=== PATIENT | female | born 1965 | race Caucasian/White ===

== ENCOUNTER 2022-01-08 11:21 | Outpatient (CLI) | payer BC, SELFPAY ==
--- NOTE | 2022-01-08 08:30 | DI.RAD_ITS ---
Exam(s) XR HIP LT COMPLETE AP PELVIS EXAM: XR HIP LT COMPLETE AP PELVIS CLINICAL HISTORY: L hip pain. TECHNIQUE: 2D digital imaging was performed. COMPARISON: No exams were available for comparison FINDINGS: 3 views There is no evidence of pelvic nor hip fracture. However, there is advanced dacp-me-tyce narrowing o f the left hip joint space superiorly and degenerative subarticular cysts on both sides of this joint both in the acetabulum and in the left femoral head. There may be an element of ipsilateral develop mental hip dysplasia, given the appearance of the acetabulum. IMPRESSION: Advanced osteoarthritic degenerative changes in the left hip as described above. DATA REPOSITORY: RADIATION DOSE DELIVERED:
--- NOTE | 2022-01-08 08:45 | DI.RAD_ITS ---
Exam(s) XR KNEE RT 4V AP,LAT,VIET,PAT EXAM: XR KNEE RT 4V AP,LAT,VIET,PAT CLINICAL HISTORY: R knee pain/OA. TECHNIQUE: 2D digital imaging was performed. COMPARISON: No exams were available for comparison FINDINGS: Four views: There is no evidence of fracture nor prominent joint effusion. There is gyak-xh-rpry narrowing of the lateral compartment as seen on the AP view. Lesser amount of degenerative change noted in the medial compartment. Moderate degenerative changes patellofemoral co mpartment. No osseous lesions IMPRESSION: Degenerative changes, most prominent in the lateral compartment, with unfu-ua-lmap narrowing and mindy inal osteophytes off the lateral compartment evident. DATA REPOSITORY: RADIATION DOSE DELIVERED:
== END 2022-01-08 11:22 | disposition home or self-care (01) ==
LOC: DIORS 11:21
PROVIDERS: Visit Provider Physician Assistant
DX: M16.12 Unilateral primary osteoarthritis, left hip (principal); M17.0 Bilateral primary osteoarthritis of knee
CPT/HCPCS: 73502; 73564

== ENCOUNTER 2022-02-08 02:29 | Outpatient (CLI) | payer BC, SELFPAY ==
[2022-02-08 12:44] LABS: HCT 41.5 % (36.0-46.0); HGB 13.8 g/dL (11.2-15.7); MCHC 33.3 % (32.0-36.0); MCV 84 fL (80-95); MPV 10.5 fL (8.0-11.0); Platelet Count 264 10^3/uL (130-400); RBC 4.92 10^6/uL (3.93-5.22); RDW 13.9 % (11.7-14.6); RDW-SD 42.5 fL
[2022-02-08 13:09] LABS: Anion Gap 8.3 mmol/L (3-11); BUN 22 mg/dL (7-18); CO2 24.7 mmol/L (21.0-32.0); Calcium 9.7 mg/dL (8.5-10.1); Chloride 106 mmol/L (98-107); Estimated GFR 66.12 (mL/min/1.73m2); Glucose 88 mg/dL (74-106); Potassium 4.5 mmol/L (3.5-5.1); Sodium 139 mmol/L (136-145)
== END 2022-02-08 02:30 | disposition home or self-care (01) ==
LOC: LBO 02:31
PROVIDERS: Visit Provider Student in an Organized Health Care Education/Training Program
DX: M16.12 Unilateral primary osteoarthritis, left hip (principal); Z01.818 Encounter for other preprocedural examination
CPT/HCPCS: 36415; 80048; 85027

== ENCOUNTER 2022-02-17 05:51 | Day surgery (SDC) | payer BC, SELFPAY ==
[2022-02-17] VITALS (9 sets, daily range): BP systolic 98–126; BP diastolic 59–81; PULSE 74–91; RESP 14–23; TEMP 36–36.6; O2SAT 90–97
[2022-02-17] MEDS: Acetaminophen 500 MG TAB 1000 MG PO (06:28)
[2022-02-17] MEDS: Celecoxib 200 MG CAP 400 MG PO (06:28)
--- NOTE | 2022-02-17 06:45 | DI.RAD_ITS ---
Exam(s) XR HIP LT IN OR EXAM: XR HIP LT IN OR CLINICAL HISTORY: primary oa of left hip. TECHNIQUE: 2D and realtime digital imaging was performed. COMPARISON: CR XR HIP LT COMPLETE AP PELVIS from 01/08/2022 FINDINGS: Fluoroscopy was provided in the OR for Dr. Osuna. Hard copy images show placement of a left hip p rosthesis. The alignment appears satisfactory. Please see procedure note for details. Fluoro time: 37.8seconds RADIATION DOSE DELIVERED: gaby Enciso=5.12 mGy
--- NOTE | 2022-02-17 06:52 | W.ANESPRE ---
General Info Date of Service Date Performed: 02/17/22 Height: 6 ft Weight: 100.6 kg Body Mass Index (BMI): 30.0 Surgical Procedure: Operation Date: 02/17/22 07:50 Proposed Procedure Side Surgeon p Hip Total Hip Anterior Corail Short Neck Left Rah Osuna MD Meds Allergies and Home Medications Allergies Allergy/AdvReac Type Severity Reaction Status Date / Time strawberry Allergy Severe Anaphylaxis Verified 02/17/22 06:07 tomato Allergy Severe Anaphylaxis Verified 02/17/22 06:07 guava Allergy Severe Anaphylaxis Uncoded 02/17/22 06:07 Home Medication Medication Instructions Recorded ascorbate calcium (vitamin C) 500 500 mg PO DAILY 02/08/22 mg tablet cholecalciferol (vitamin D3) 10 10 mcg PO DAILY 02/08/22 mcg (400 unit) capsule coenzyme Q10 10 mg capsule (Co 10 mg PO ONCE 02/08/22 Q-10) ibuprofen 200 mg tablet 600 mg PO Q6H PRN 02/08/22 omega 6-nfx-vzn-fish oil 60 mg-90 1 cap PO DAILY 02/08/22 mg-500 mg capsule (Fish Oil) Current Visit Medications: Current Medications Generic Name Dose Route Start Last Admin Trade Name Freq PRN Reason Stop Dose Admin Acetaminophen 1,000 mg 02/17/22 06:00 02/17/22 06:28 Acetaminophen 500 Mg Tab PO 1,000 mg PREOP MARLENY Administration Celecoxib 400 mg 02/17/22 06:00 02/17/22 06:28 Celecoxib 200 Mg Cap PO 400 mg PREOP MARLENY Administration Tranexamic Acid 1,000 mg/ 60 mls @ 360 mls/hr 02/17/22 06:00 Sodium Chloride IV 02/17/22 18:00 PREOP MARLENY Ringer's Solution 1,000 mls @ 80 mls/hr 02/17/22 06:00 IV 02/17/22 23:59 INFUSION MARLENY Cefazolin Sodium/Dextrose 2 gm in 50 mls @ 100 mls/hr 02/17/22 06:00 Ancef Duplex IVPB 02/17/22 23:59 PREOP MARLENY IV Miscellaneous Supplies 1 each 02/17/22 06:00 Iv Access IV 02/17/22 23:59 DIRECTED MARLENY Sodium Chloride 0 ml 02/17/22 06:00 Normal Saline Flush 10 Ml Syr IV 02/17/22 23:59 PRN PRN Sodium Chloride 0 ml 02/17/22 06:00 Normal Saline 10 Ml Vial IJ 02/17/22 23:59 DIRECTED PRN Sterile Water 0 ml 02/17/22 06:00 Water,Injection,Sterile 10 Ml Vial IJ 02/17/22 23:59 DIRECTED PRN PFSH Active Problems Active Problems: Problem Status Onset Code Asthma J45.909 Anemia D64.9 Bilateral primary osteoarthritis of knee M17.0 Primary osteoarthritis of left hip M16.12 Medical History Medical History (Updated 02/17/22 @ 06:12 by Salina Dupont) History of asthma History of kidney stones Medical History Comments:: pt. remembers aunt coming in with heavy perfume on after her surgery and then vomitting after both surgeries Surgical History Surgical History History of appendectomy History of tonsillectomy Tobacco Smoking/Tobacco Use Status: Never Alcohol Alcohol Intake: current Alcohol intake frequency: a few times a week Alcohol type: hard liquor Substance Use Substance use: Never Details: alcohol: t-1, one drink Vital Signs and Lab Results Vital Signs Most Recent Vital Signs in EMR: Most Recent Vital Signs Temp Pulse Resp BP Pulse Ox 36.6 C 87 14 126/81 97 02/17/22 06:16 02/17/22 06:16 02/17/22 06:16 02/17/22 06:16 02/17/22 06:16 Lab Results Blood Type / Crossmatch: No Data to Display Complete Blood Count: White Blood Count 10.10 10^3/uL (4.4-10.8) 02/08/22 12:34 Red Blood Count 4.92 10^6/uL (3.93-5.22) 02/08/22 12:34 Hemoglobin 13.8 g/dL (11.2-15.7) 02/08/22 12:34 Hematocrit 41.5 % (36.0-46.0) 02/08/22 12:34 Platelet Count 264 10^3/uL (130-400) 02/08/22 12:34 Complete Metabolic Panel: Sodium 139 mmol/L (136-145) 02/08/22 12:34 Potassium 4.5 mmol/L (3.5-5.1) 02/08/22 12:34 Chloride 106 mmol/L (98-107) 02/08/22 12:34 Carbon Dioxide 24.7 mmol/L (21.0-32.0) 02/08/22 12:34 BUN 22 mg/dL (7-18) H 02/08/22 12:34 Creatinine 1.0 mg/dL (0.55-1.02) 02/08/22 12:34 Est GFR (CKD-EPI 2020) 66.12 (mL/min/1.73m2) 02/08/22 12:34 Calcium 9.7 mg/dL (8.5-10.1) 02/08/22 12:34 Glucose 88 mg/dL (74-106) 02/08/22 12:34 Liver Function Panel: No Data to Display Coagulation Panel: No Data to Display Cardiac Panel: No Data to Display Arterial Blood Gas: No Data to Display Venous Blood Gas: No Data to Display Pancreas Panel: No Data to Display Thyroid Panel: No Data to Display Infectious Disease: No Data to Display Blood Cultures: No Data to Display Toxicology Panel: No Data to Display Anesthesia Assessment and Plan Anesthesia History Personal History: No History of Anesthesia Complications and PONV Family History: No Family History of Anesthesia Complications Exercise Tolerance Exercise Tolerance: Metabolic Equivalents>4 Pertinent Negatives Pertinent Negatives: No Symptoms of GERD Cardiac & Pulmonary Exam Cardiac Exam: Normal S1/S2 Heart Sounds Pulmonary Exam: Clear Bilateral Breath Sounds Implantable Cardiac Device Does patient have a Pacemaker or an ICD?: No Airway Exam Known Difficult Airway: No Mallampati Class: 1 Mouth Opening: Normal (> 3cm) Thyromental Distance: Greater than 3 cm Neck Range of Motion: Full ROM Neck Circumference: Normal Teeth Condition: Normal Dentition ASA Classification ASA Score: ASA 2 Emergency Case?: No NPO Status NPO Status: NPO Clears >2 hours, Solids >8 hours Anesthesia Plan Resuscitation Status: Full Code Anesthesia Technique: Spinal Anesthesia Airway Planned: Natural Airway Monitors Used: Standard Monitors
[2022-02-17] MEDS: Lactated Ringers 1,000 ML 80 ML IV (06:55)
--- NOTE | 2022-02-17 07:22 | PDOC.DSDIS_ITS ---
Date of service: 02/17/22 Time of Service: 07:22 Discharge Plan Disposition Patient Disposition: HOME Condition: Good Condition: Good Discharge Details Attending Provider: Rah Osuna Primary Care Provider: Unknown,Unknown Home Meds and New Rx's Prescriptions: New acetaminophen 500 mg tablet 1,000 mg PO Q8H PRN (Reason: pain) Qty: 90 3RF aspirin 81 mg tablet,delayed release (DR/EC) 81 mg PO BID Qty: 60 0RF dexamethasone 4 mg tablet 4 mg PO DAILY Qty: 2 0RF Rx Instructions: Starting Post-Operative Day #1 (Day after surgery) oxycodone 5 mg tablet 5 mg PO Q4H Qty: 18 0RF pantoprazole 40 mg tablet,delayed release (DR/EC) 40 mg PO DAILY Qty: 30 0RF celecoxib 200 mg capsule 200 mg PO BID PRN (Reason: pain) Qty: 60 1RF Continued cholecalciferol (vitamin D3) 10 mcg (400 unit) capsule 10 mcg PO DAILY coenzyme Q10 [Co Q-10] 10 mg capsule 10 mg PO ONCE omega 8-vhi-dty-fish oil [Fish Oil] 60-90-500 mg capsule 1 cap PO DAILY ascorbate calcium (vitamin C) 500 mg tablet 500 mg PO DAILY Discontinued ibuprofen 200 mg tablet 600 mg PO Q6H PRN Discharge Instructions Additional Instructions: Total Hip Discharge Instructions Activity: The most important activity is to walk. You should try to take short walks a few times a day. You have no restrictions on movement or positioning, but do not try to force what you do. You will find some stiffness and weakness with hip flexion (lifting your knee). Do not try to strengthen this too early, continue to practice walking and stairs and this will come. - Outpatient physical therapy can be helpful to help return you to a normal gait and improve your flexibility and strength. This can start around 2 weeks. For some patients, it?s not necessary. Usually this is determined at the time of discharge or at the first post-operative visit. - You should wear the SAMM hose on both legs for 2 weeks. Dressing: Keep the surgical dressing in place for at least one week. After the first week it may be removed and replace with light gauze and tape or nothing. It may get wet after 3 days but avoid soaking the dressing. If it gets wet, just lightly pat dry. It is important to always keep some gauze between skin folds, especially when you are sitting. Spend some time with the wound exposed when you are lying flat as the incision does wrinkle onto itself. Medications: - You should take Tylenol and an anti-inflammatory Celebrex as your primary pain control medications. If the Celebrex is too expensive or not covered, please call the office for another alternative (Advil/Ibuprofen or Naproxen/Aleve). - You have been prescribed a stronger pain medication Oxycodone for breakthrough pain, take as needed as prescribed. - You have also been prescribed a stomach acid reduction agent Pantoprozole to help reduce stomach acid and reflux. - You have also been prescribed Decadron to help with post-operative nausea and pain. You will take this for two days starting tomorrow. - You will be taking Aspirin 81mg twice a day for DVT prevention unless instructed otherwise. - If you have constipation you should take Colace or Miralax (both [id number]). It takes most people 3-4 days to have a bowel movement. Follow-up: 2 weeks If you have any acute concerns or questions, please do not hesitate to contact the office at [phone]. You may contact Dr. Osuna with any questions after hours through the hospital at [phone] or on his cell phone at [phone]. Stand Alone Forms: Anesthesia Discharge Inst., Oanh Butterfield (U) Referrals: Rah Osuna MD [ [facility] STAFF PHYSICIAN] - Equipment/Supplies: Walker Activity:: Activity as Tolerated Remove Dressings/Wound Care:: Do Not Remove Shower/Bathe:: 72 hours and Cover Diet:: As Tolerated Discharge Orders Discharge Orders: Discharge Order (Routine); Ordered 02/17/22 Ordered By: Rah Osuna DS: Diagnosis Discharge Diagnosis (1) Primary osteoarthritis of left hip: Status: Acute
[2022-02-17] MEDS: ceFAZolin 2 GM/50 ML BAG IVPB (07:45)
--- NOTE | 2022-02-17 10:02 | W.PM.OP ---
Date of service: 02/17/22 Time of Service: 09:15 Operative Note Operative Note DATE OF PROCEDURE: 02/17/22 PRE-OP DIAGNOSIS: Left Hip Osteoarthritis POST-OP DIAGNOSIS: same PROCEDURE: Left Anterior Total Hip Arthroplasty with Intraoperative Navigation SURGEON: Rah Osuna INDEPENDENT INSURANCE ADJUSTER: Dewayne Bass ANESTHESIA TYPE: Spinal Refer to Anesthesia Record ESTIMATED BLOOD LOSS: 200 PATHOLOGY: none sent TOURNIQUET TIME: 0 COMPLICATIONS: None Patient was transported to: PACU Patient's condition: stable Implants: 1. Depuy Kendrick Acetabular Component, 52mm 2. Depuy Acetabular Liner, [id number] 3. Depuy Corail Short Neck Collared Femoral Stem, Size 13 4. Depuy Altrx Ceramic Femoral Head, Size 36+1.5mm Indications: I have seen Nedra in clinic for symptoms of hip arthritis, confirmed with radiographic findings. She has exhausted nonoperative methods and was having significant limitations in daily function and desired better function and less pain. I discussed the technical details of a hip replacement. I explained the risks of the procedure to include, but not limited to, bleeding, infection, pain, stiffness, fracture, damage to nerves and vessels, damage to muscles and tendons, loosening, instability, leg length inequality, need for repeat procedure, blood clot and cardiopulmonary demise. Despite these risks, Nedra elected to proceed. Findings: There was significant signs of arthritis throughout the hip with notable deformity of the femoral head. Procedure Description: Nedra was greeted in the preoperative holding area where the correct side was identified and marked. The consent was reviewed with the patient and signed. The history and physical was updated. All questions were answered. She was taken back to the operating room. A spinal anesthestic was then administered. The feet were wrapped with cast padding and Coban and then placed into the boot liners and then into the boots. Care was taken to protect the skin and make sure the heels were fully down and the boots were stable. The patient was then positioned onto the HANA table. Both legs were held in a neutral position. SCDs were applied. The patient was then slid down onto a peroneal post. Prophylactic antibiotics in the form of Cefazolin were administered. 1g of Tranxemic Acid was given intravenously within 30 minutes of incision. The left leg was then prepped with Chloraprep and draped in a standard fashion. A second prep with Chloraprep was performed prior to placement of a shower-curtain type drape with Iodine impregnated skin protection. A timeout to confirm correct identity, side and site, procedure, allergies, anesthesia, and medical concerns was performed. An obliquely oriented incision was made starting lateral to the ASIS and running distal over the Tensor Fascia Cici (TFL) muscle belly toward the fibular head, approximately 10cm. The skin and soft tissue was dissected sharply, through Rob?s fascia, and to the fascia of the TFL. With the fascia and superior border of the IT band identified, the fascia was incised with a new knife just above any perforators from the IT band. The TFL muscle belly was bluntly dissected away from the fascia and moved laterally. The fat between TFL and rectus was identified to ensure the dissection was not within the TFL. Blunt dissection created space between abductors and the capsule and retractor was placed over the lateral femoral neck. The fibers of the rectus femoris tendon were identified and these were freed from the anterior capsule. A second cobra retractor was placed around the medial femoral neck. The TFL was further retracted laterally to show the deep fascia. Careful dissection through this layer identified three main crossing vessels of the lateral femoral circumflex. These were cauterized in multiple locations and then cut without any noticeable bleeding. The TFL was further released bluntly from the deep fascia to expose anterior hip capsule and fat The Miah orthopaedic retractor was then placed beneath the TFL and against sartorius and medial soft tissues to protect and retract the soft tissues. A T-capsulotomy was then performed starting at the superior lateral acetabulum and moving distally to the intertrochanteric ridge. These capsular flaps were tagged with a No. 1 Ethibond and elevated from within. The capsular flaps were released to the shoulder of the lateral neck and to the lesser trochanter to give excellent visualization of the proximal femur. A neck osteotomy was performed using an oscillating saw based on preoperative templates. This cut started in the shoulder and of the lateral neck and exited medially. The saw was at all times directed medially to avoid injury to the greater trochanter. Gross traction was applied to the leg and the osteotomy opened. The femoral head was removed with a corkscrew, making sure to protect the TFL on its exit. Traction was released after head removal. This was measured on the back table to determine the starting reamer size. Portions of the rectus obscuring visualization were minimally elevated off the superior acetabulum. An anterior retractor was placed over the anterior wall between capsule and labrum and attached to the Gripper retraction system. The femur was rotated to 90 degrees and medial capsule was fully released until the lesser trochanter was palpable and visible; the femur was returned to 30 degrees. A posterior retractor was placed similarly between capsule and labrum. This provided excellent visualization. The contents of the cotyloid fossa were removed with electrocautery and the labrum was removed with a knife. There was significant chondromalacia of the superior acetabulum. Acetabular reaming began with a 46mm reamer. This first reaming was directed anterior to posterior and medial to get down to the true floor. This was inspected and reamed until the true floor was reached. The anterior retractor was then released and entry and exit was provided by traction on the capsular flaps. I then reamed sequentially up to a 52mm reamer where good fit was obtained. The larger reamers were oriented based on anatomical reference of the anterior and lateral garcia to ensure proper abduction and anteversion. Positioning and size was confirmed with the fluoroscopy. A 52mm Depuy Kendrick acetabular component was selected. The acetabulum was reamed around the periphery with the selected acetabular size to prevent a rim fit. The deep tissues were irrigated. The acetabular component was then impacted in a position of about 40-45 degrees of abduction and 15-20 degrees of anteversion, using the patient?s anatomy as the ultimate landmark. Fluoroscopy was used to confirm this. There was excellent committee member of the acetabular component and the inserting handle was removed. The acetabular liner, Depuy [id number] polyethylene liner, was inserted and lined up with the tines of the acetabular component. There was no soft tissue interposition. The liner was then impacted into position and confirmed to be well-seated. A portion of the jane-articular cocktail was then injected around the acetabulum into the capsule and periosteum. This cocktail consisted of 123mg of Ropivacaine, 0.25mg of Epinephrine, and 15mg of Ketorolac, diluted to 50cc. The leg was rotated to 120 degrees. Any remaining medial capsule was released until the lesser trochanter was easily palpable. A retractor was placed medially. The lateral capsule was further released into the shoulder to allow access to the greater trochanter. A Cepsedes retractor was placed over the greater trochanter which allowed the trochanter to flip in front of the capsule for excellent exposure. The leg was brought down into maximal extension and 20 degrees of adduction while ensuring there was no impingement on the acetabulum. Any remnant capsule within the trochanter was released. Piriformis and obturator externis were identified and protected. There was excellent access to the proximal femur. The lateral neck remnant was removed with a rongeur. A blunt canal probe was used to identify the canal and trajectory for later broaching. A box osteotome initiated the broach course. A small curved rasp and a curved curette were used to work laterally. Broaching then began with a size 8 Corail broach. This was inserted manually around the trochanter and into the canal before mallet blows. The broach was seated to the neck cut level based on the neck cut and the preoperative template. Sequential broaching was continued with the [employer] pneumatic broaching device until a tight fit was obtained with good rotational control of the femur. A trial short neck was inserted along with a +1.5 trial head. The leg was brought out of extension and adduction and then reduced with traction and internal rotation. The leg was stable anteriorly in a position of 30 degrees of extension and 90 degrees of external rotation. Fluoroscopy was used to ensure there was no fracture and the stem was seated well. Leg lengths were checked with an AP pelvis and pelvic reference points. Mozido navigation system was used to confirm appropriate positioning and leg length and offset. Once content with the desired offset and leg lengths, the leg was brought back into extension, external rotation and adduction. The periosteum and surrounding tissue was injected with remaining portion of the jane-articular cocktail. The proximal femur was irrigated as well as the deep tissues. The Depuy Corail short neck collared stem, size 13, was then manually inserted into the proximal femur making sure to control rotation. It was then malleted into position with light blows, giving breaks to allow bone expansion and decrease risk of fracture. The selected Depuy Altrx Ceramic Head, size 36+1.5mm, was then placed onto the clean and dry trunnion and secured with impaction onto the tapered fit. The leg was brought back out of extension and adduction and reduced with traction and internal rotation. Stability was confirmed with no shuck at 90 degrees of external rotation and 30 degrees of extension. No impingement through range of motion arc. Final x-ray images were obtained with fluoroscopy to confirm adequate positioning and no intraoperative fracture. The deep tissues were thoroughly irrigated with Surgiphor, betadine solution. This was allowed to sit in the wound for 3 minutes before being thoroughly irrigated out with normal saline. The capsule was then reapproximated with the previously placed Ethibond sutures. The TFL fascia was finally closed with a No. 2 Stratafix, barbed suture. Deep tissues were then reapproximated with 0 Vicryl and a running 2-0 Vicryl. The skin was closed with a running 4-0 Monocryl in a subcuticular fashion. This was reinforced with skin glue. A Mepilex silver dressing was applied. At the end of the case, all counts were correct. Nedra was transferred to the hospital bed without difficulty and suffering no apparent complication. Nedra has a good prognosis. Physical therapy will start today and without restrictions, weight-bearing as tolerated. Aspirin 81mg BID will be used for DVT prophylaxis.
[2022-02-17] MEDS: oxyCODONE 5 MG TAB PO (10:48)
--- NOTE | 2022-02-17 10:49 | W.ANESPOSTOP ---
Postoperative Evaluation Date, Time and Location Date Performed: 02/17/22 Time Performed: 10:15 Patient Location: Day Surgery Unit Vital Signs Most Recent Imported Vital Signs: Most Recent Vital Signs Temp Pulse Resp BP Pulse Ox 36.0 C L 75 16 107/78 94 02/17/22 10:08 02/17/22 10:08 02/17/22 10:08 02/17/22 10:08 02/17/22 10:08 Pain Score Most Recent Pain Score: Most Recent Pain Score Pain Level [Left Hip] 6 02/17/22 10:32 Pain Level 0 02/17/22 09:59 Assessment Mental Status: Awake (Alert & Oriented to Patient Baseline) Airway and Respiratory Function: Patent airway with normal (patient baseline) respiratory exam Cardiovascular Function: Hemodynamically Stable Hydration Status: Adequately Hydrated Nausea & Vomiting: No Nausea or Vomiting Pain: Pain is tolerable per patient Peripheral Nerve Block: Patient did not receive a nerve block
== END 2022-02-17 12:35 | disposition home or self-care (01) ==
PROVIDERS: Visit Provider Student in an Organized Health Care Education/Training Program
PROC: (CPT 27130; principal; 2022-02-17 07:30)
DX: M16.12 Unilateral primary osteoarthritis, left hip (principal); J45.909 Unspecified asthma, uncomplicated; D64.9 Anemia, unspecified
CPT/HCPCS: 27130; 20985; 97162; 97530; 73501; J0690; J1100; J2250; J2405

== ENCOUNTER 2022-03-04 11:13 | Outpatient (CLI) | payer BC, SELFPAY ==
--- NOTE | 2022-03-04 10:15 | DI.RAD_ITS ---
Exam(s) XR HIP LT COMPLETE AP PELVIS EXAM: XR HIP LT COMPLETE AP PELVIS CLINICAL HISTORY: 1ST POST OP L MICHELE TECHNIQUE: COMPARISON: CR XR HIP LT COMPLETE AP PELVIS from 01/08/2022 FINDINGS: Two views were obtained and show total hip joint replacement in position. The components appear well seated. No other significant bony abnormality seen on the left. Mild degenerative changes of the r ight hip noted. IMPRESSION: RADIATION DOSE DELIVERED: Total DLP
== END 2022-03-04 11:14 | disposition home or self-care (01) ==
LOC: DIORS 11:16
PROVIDERS: Visit Provider Student in an Organized Health Care Education/Training Program
DX: Z96.642 Presence of left artificial hip joint (principal)
CPT/HCPCS: 73502

== ENCOUNTER 2022-03-10 13:18 | Outpatient (CLI) | payer BC, SELFPAY ==
--- NOTE | 2022-03-10 12:12 | DI.RAD_ITS ---
Exam(s) XR STANDING ALIGNMENT EXAM: XR STANDING ALIGNMENT CLINICAL HISTORY: pre op TECHNIQUE: COMPARISON: No exams were available for comparison FINDINGS: AP standing alignment views of the lower extremities were obtained. There is a total hip joint prost hesis in position left. There are mild degenerative changes of the right hip. There is varus angula tion at both knees. There are moderate to severe degenerative changes involving the knees, predomina ntly at the lateral tibiofemoral joints. IMPRESSION: RADIATION DOSE DELIVERED: Total DLP
== END 2022-03-10 13:19 | disposition home or self-care (01) ==
LOC: DIORS 13:19
PROVIDERS: Visit Provider Student in an Organized Health Care Education/Training Program
DX: M17.0 Bilateral primary osteoarthritis of knee (principal); Z96.642 Presence of left artificial hip joint; M16.11 Unilateral primary osteoarthritis, right hip; M21.161 Varus deformity, not elsewhere classified, right knee; M21.162 Varus deformity, not elsewhere classified, left knee
CPT/HCPCS: 77073

== ENCOUNTER 2022-03-22 02:53 | Outpatient (CLI) | payer BC, SELFPAY ==
[2022-03-22 10:56] LABS: Abs Immature Grans 0.07 10^3/uL (0.0-0.06); Absolute Basophil Count 0.09 10^3/uL (0.0-0.2); Absolute Eosinophil Count 0.19 10^3/uL (0.0-0.7); Absolute Lymphocyte Count 2.06 10^3/uL (1.2-3.4); Absolute Monocyte Count 0.43 10^3/uL (0.1-0.8); Basophils % 0.9; Eosinophils % 1.9; HCT 43.3 % (36.0-46.0); HGB 14.3 g/dL (11.2-15.7); Immature Grans % 0.7; Lymphocytes % 20.3; MCH 28.1 pg (27.0-33.0); MCV 85 fL (80-95); MPV 10.5 fL (8.0-11.0); Monocytes % 4.2; Platelet Count 276 10^3/uL (130-400); RBC 5.09 10^6/uL (3.93-5.22); RDW-SD 43.7 fL; WBC 10.14 10^3/uL (4.4-10.8)
[2022-03-22 11:22] LABS: Anion Gap 10.8 mmol/L (3-11); BUN 20 mg/dL (7-18); CO2 26.2 mmol/L (21.0-32.0); Calcium 9.7 mg/dL (8.5-10.1); Chloride 103 mmol/L (98-107); Estimated GFR 66.12 (mL/min/1.73m2); Glucose 111 mg/dL (74-106); Potassium 4.1 mmol/L (3.5-5.1); Sodium 140 mmol/L (136-145)
== END 2022-03-22 02:54 | disposition home or self-care (01) ==
LOC: LBO 02:55
PROVIDERS: Visit Provider Student in an Organized Health Care Education/Training Program
DX: M17.0 Bilateral primary osteoarthritis of knee (principal); M25.561 Pain in right knee; M25.562 Pain in left knee; Z01.818 Encounter for other preprocedural examination; Z01.812 Encounter for preprocedural laboratory examination
CPT/HCPCS: 36415; 80048; 85025

== ENCOUNTER 2022-03-30 07:02 | Day surgery (SDC) | payer BC, MEDICARE, SELFPAY ==
--- NOTE | 2022-02-17 11:49 | PT.INIE ---
Date of service: 02/17/22 Time of Service: 11:02 PT Notes Physical Therapy Day Surgery Initial Evaluation Date: 02/17/2022 Referring Doctor: Rah Osuna MD PT Orders: PT CONSULT: S/P Ortho Surgery Precautions: WBAT on L LE with AD. Patient Profile/Admitting Diagnosis: Nedra is a 56-year-old female patient with degenerative joint disease of the L hip and is S/P L anterior total hip arthroplasty on postoperative day 1. PMHX: Medical History?(Updated 02/09/22 @ 08:24 by GREGG Chowdary) History of kidney stones Surgical History?(Updated 11/11/21 @ 15:54 by Jairo Hermosillo RN) History of appendectomy History of tonsillectomy Social History/Home Situation: Lives with in a private home they recently moved in [place], [place] with trhreee steps to enter with rails on B sides. Independent with 4WW prior to surgery. Has been using a hinged brace on the left due to an old L knee injuryshe had incollege playing basketball. Equipment Owned/DME: [employer] Subjective: Excited about how less she is hurting with movement. More satisfied with her posture right norw than before surgery. Feels more seucure with the front-wheeled walker for now. 6/10 at rest and went down to 2/10 with ambulation activity Objective: General Observation: Supine on stretcher. Mepilex Ag over surgical incision. TEDS to B legs. In NAD. Mental Status: Alert and oriented x 4 Pain: Initially at 6/10 in the R knee and the L hip; went down to 2/10 in same areas with weight bearing/movement ROM: Right Lower Extremity: Hip flexion WFL. Hip abduction WFL. Knee flexion contracture of about 30 degrees but able to bend to about 90 degrees. knee extension -30 degrees. Ankle dorsiflexion WFL. Ankle plantarflexion WFL. Left Lower Extremity: Hip flexion lacks the last 25% of active flexion due to pain adn weakness. Hip abduction about 10 degrees, neeeded help of L hand to slide further onto edge of bed. Knee flexion 20 degrees to 90 degrees. Kneee extension -20 degrees. Ankle dorsiflexion WFL. Ankle plantarflexion WFL. Strength: Right Lower Extremity: Hip flexors 4-/5. Hip abductors 4-/5. Knee flexors 3-/5. Knee extensors 3-/5. Ankle dorsiflexors 4-/5. Ankle plantarflexors 4-/5. Left Lower Extremity: Hip flexors 3-/5. Hip abductors 3-/5. Knee flexors 3-/5. Knee extensors 3-/5. Ankle dorsiflexors 4-/5. Ankle plantarflexors 4/5. Sensation: Denies numbnenss and tingling in B LE. Inatct as to pain and light pressure in B LE Bed Mobility/Transfers: Supine to sit stand by assist Sit to stand stand by assist Stand to sit stand by assist Bed to chair stand by assist Gait: 50 feet of level surface ambulation using front wheeled walker with step to gait pattern, standby assist provided. Genu valgum on the right side noted. Pain level decreased to 2/10 after activity. Stairs: Up and down 3 x 4-inch steps and 2 x 6-inch steps while holding onto B rails with contact guard assist, stand by assist proviced. THERA EX: Reviewed and trained with HEP in reference to written I-lightingbridge exercises provided to patient- Supine heel slides x 10 Quads sets x 10 Gluteal sets x 10 LAQs x 10 ` B heeel raises x10 Balance: Static Sitting: Normal Dynamic Sitting: Normal Static Standing: Fair Dynamic Standing: Fair Special Tests: Mobility Limitations Standardized Measure [facility] AM-PAC 6 clicks Basic Mobility Inpatient Short Form: Raw Score: 23 CMS Score: 11% deficit Informed Consent/Education: Patient instructed in purpose of PT consult. Packet containing [] exercise protocol has been given to patient. Education and training on initial set of exercises that can be done at home have been completed with patient. Assessment: Patient requires the use of a front-wheeled walker for all mobility ADL performance to maximize independence and reduce fall risk. Patient presents with clinical signs and symptoms consistent with current/admitting diagnoses that have resulted to mobility limitations, gait instability, generalized weakness, and impairment of motor control as demonstrated by the following impairment level findings: 1. Decreased strength to left hip and right knee major muscle groups 2. Impaired standing balance 3. Limitation of joint range of motion in left hip and right knee Impairments are contributing to the following functional limitations: 1. Inability to safely ambulate without assistive device 2. Increase completion time for mobility ADL performance 3. Increased fall risk Patient is assessed as a 34416 moderate complexity based on the following: History: 56-year-old female with impairment level findings, functional limitations, and past medical history as indicated above Examination: Demonstrable impairment in strength, balance, and mobility level with underlying impairments and functional limitations as documented above Presentation: Evolving Decision Makin moderate complexity Goals: N/A. PT evaluation and 1-2 treatment sessions only for functional mobility training using recommended AD and for HEP instruction. Plan of Care/Treatment Plan: N/A. PT evaluation and 1-2 treatment session only for functional mobility training using recommended AD and for HEP instruction. DISCHARGE RECOMMENDATIONS: [] Home with no services [] [] Home with services [specify] [X] Home with outpatient PT. Home when cleared by surgeon. Will benefit from outpatient PT services to optimize functional mobility outcomes and facilitate return to independent community ambulation without an assistive device. [] SNF for continued rehabilitation [] [] [facility] [] [] SNF versus LTC based on ability to participate and progress [] TREATMENT CODE/TIME: 9716 2 x 20 minutes, 9753 0 x 20 minutes beginning at 11:02 AM. Thank you for the opportunity to participate in the care of this patient. Rola Espinoza PT, DPT, CLT [facility] [place], [place]
[2022-03-30] VITALS (13 sets, daily range): BP systolic 128–184; BP diastolic 78–105; PULSE 78–95; RESP 16–27; TEMP 36–36.4; O2SAT 89–99; BMI 28.9
[2022-03-30] MEDS: Gabapentin 300 MG CAP PO (07:47)
--- NOTE | 2022-03-30 08:08 | DSE_ITS ---
Date of service: 03/30/22 Time of Service: 11:34 DS: Diagnosis Discharge Diagnosis (1) Degenerative joint disease of right knee: Status: Acute Discharge Plan Disposition Patient Disposition: Home Condition: Good Discharge Details Reason For Visit: Right knee DJD Attending Provider: Rah Osuna Primary Care Provider: None,None Home Meds and New Rx's Prescriptions: New acetaminophen 500 mg tablet 500 mg PO Q6H PRN (Reason: pain) Qty: 60 2RF aspirin 81 mg tablet,delayed release (DR/EC) 81 mg PO BID 30 Days Qty: 60 0RF celecoxib [Celebrex] 200 mg capsule 200 mg PO BID Qty: 60 0RF docusate sodium [Colace] 100 mg capsule 100 mg PO BID Qty: 30 0RF dexamethasone 4 mg tablet 4 mg PO DAILY Qty: 2 0RF Rx Instructions: Take one tablet once daily for two days gabapentin 300 mg capsule 300 mg PO QHS Qty: 14 0RF Rx Instructions: Take one tablet at bedtime oxycodone 5 mg tablet 5 mg PO Q4H PRN (Reason: severe post-operative pain) Qty: 18 0RF Rx Instructions: Take one tablet up to every 4 hours as needed for severe pain pantoprazole 40 mg tablet,delayed release (DR/EC) 40 mg PO DAILY Qty: 14 0RF Continued cholecalciferol (vitamin D3) 10 mcg (400 unit) capsule 10 mcg PO DAILY coenzyme Q10 [Co Q-10] 10 mg capsule 10 mg PO ONCE omega 9-kme-qfk-fish oil [Fish Oil] 60-90-500 mg capsule 1 cap PO DAILY ascorbate calcium (vitamin C) 500 mg tablet 500 mg PO DAILY Discontinued acetaminophen 500 mg tablet 1,000 mg PO Q8H PRN (Reason: pain) Qty: 90 3RF aspirin 81 mg tablet,delayed release (DR/EC) 81 mg PO BID Qty: 60 0RF dexamethasone 4 mg tablet 4 mg PO DAILY Qty: 2 0RF Rx Instructions: Starting Post-Operative Day #1 (Day after surgery) Discharge Instructions Additional Instructions: Total Knee Discharge Instructions Activity: The most important activity is to walk and to work on gentle motion (both flexion and extension). You should try to take short walks a few times a day. It is important that when resting you work on keeping the knee straight. Avoid putting a pillow behind the knee as this will encourage flexion. Work on range of motion exercises as provided by Physical Therapy. - Start outpatient physical therapy within 2 weeks. - You should wear the SAMM hose on both legs for 2 weeks. You may remove these at night. You may also use any compression sock in place of the SAMM hose. - Utilize [employer] to review exercises, see videos on exercises and obtain basic information pertaining to your surgery and your recovery. Dressing: Remove the Be wrap by 2 days after your surgery and put on the SAMM stocking given to you from the hospital. Keep the surgical dressing (underneath the BE wrap) in place for at least one week. After the first week it may be removed and replaced with light gauze and tape or nothing. The wound and dressing may get wet after 3 days but avoid soaking the dressing or otherwise it will need to be changed. Many people prefer covering the dressing with cling wrap (saran wrap) to minimize it from getting soaked. If it gets wet, just pat dry. If it starts to peel off then it will need to be changed. Medications: - You should take Tylenol and anti-inflammatory Celebrex as your primary pain control medications. If the Celebrex is too expensive or not covered, please call the office for another alternative (Advil/Ibuprofen or Naproxen/Aleve) - You have been prescribed a stronger pain medication Oxycodone for breakthrough pain, take as needed as prescribed. - You have also been prescribed a stomach acid reduction agent Pantoprozole to help reduce stomach acid and reflux. - You have been prescribed Gabapentin to take at night for restlessness and nerve pain. - You will be taking Aspirin 81mg twice a day for DVT prevention unless instructed otherwise. - You have also been prescribed Decadron to take to control post-operative nausea and pain. You will start this tomorrow. - If you have constipation you should take Colace (which has been prescribed) or Miralax (which is available [id number]). It takes most people 3-4 days to have a bowel movement. Follow-up: 2 weeks If you have any acute concerns or questions, please do not hesitate to contact the office at [phone]. You may contact Dr. Osuna with any questions after hours through the hospital at [phone] or on his cell phone at [phone]. Referrals: Rah Osuna MD [ [facility] STAFF PHYSICIAN] - Equipment/Supplies: Walker Activity:: Elevate Remove Dressings/Wound Care:: Do Not Remove Shower/Bathe:: Cover Diet:: As Tolerated DS: Summary Time Spent with Patient providing and/or coordinating discharge services: Less than 30 minutes Status at Discharge Functional status at discharge: uses cane/walker Overall status at discharge: patient is progressing back to baseline Mental Status: mental status grossly normal Speech and Movement: speech and movement normal Mood: congruent mood Affect: normal affect Exam Psych Mental Status: mental status grossly normal Speech and Movement: speech and movement normal Mood: congruent mood Affect: normal affect DS: Data Vitals/I&O Vitals and I&O: Vital Signs Temperature 97.5 F L 03/30/22 07:36 Pulse 120 H 03/30/22 07:36 Pulse Rhythm Regular 03/30/22 07:36 Respiratory Rate 18 03/30/22 07:36 Respiratory Depth Normal 03/30/22 07:36 Blood Pressure 136/87 03/30/22 07:36 Pulse Oximetry 99 03/30/22 07:36 Oxygen Delivery Method Room Air 03/30/22 07:36 Oxygen Flow Rate 0 03/30/22 07:36 Pain Level 5 03/30/22 07:36 Intake & Output 03/29/22 03/29/22 03/30/22 11:59 23:59 11:59 Weight 213 lb 2.992 oz PFSH All Active Problems (Updated 03/30/22 @ 08:09 by Linnette Oh) Left knee DJD (Acute) Degenerative joint disease of right knee (Acute) History of total left hip arthroplasty (Acute 02/17/22) Asthma (Chronic) Anemia (Chronic) Medical History History of asthma History of kidney stones Surgical History History of appendectomy History of tonsillectomy Social History Smoking/Tobacco Use Status: Never Smoking risk assessment performed?: Yes Alcohol Intake: current Alcohol Intake frequency: a few times a week Alcohol type: hard liquor Drug use: Never Current gender identity: female Do you feel safe at home: Yes Do you feel safe in your relationship?: Yes
--- NOTE | 2022-03-30 08:40 | ANES.PREOP_ITS ---
General Info Date of Service Date Performed: 03/30/22 Height: 6 ft Weight: 96.7 kg Body Mass Index (BMI): 28.9 Surgical Procedure: Operation Date: 03/30/22 10:40 Proposed Procedure Side Surgeon p Knee Total Arthroplasty,OrthAlign,Cementless PS Right Rah Osuna MD Meds Allergies and Home Medications Allergies Allergy/AdvReac Type Severity Reaction Status Date / Time guava Allergy Severe Anaphylaxis Verified 03/30/22 07:35 strawberry Allergy Severe Anaphylaxis Verified 03/30/22 07:35 tomato Allergy Severe Anaphylaxis Verified 03/30/22 07:35 Home Medication Medication Instructions Recorded ascorbate calcium (vitamin C) 500 500 mg PO DAILY 02/08/22 mg tablet cholecalciferol (vitamin D3) 10 10 mcg PO DAILY 02/08/22 mcg (400 unit) capsule coenzyme Q10 10 mg capsule (Co 10 mg PO ONCE 02/08/22 Q-10) omega 2-kty-wkx-fish oil 60 mg-90 1 cap PO DAILY 02/08/22 mg-500 mg capsule (Fish Oil) acetaminophen 500 mg tablet 500 mg PO Q6H PRN pain #60 tabs 03/30/22 aspirin 81 mg tablet,delayed 81 mg PO BID 30 days #60 tabs 03/30/22 release celecoxib 200 mg capsule (Celebrex) 200 mg PO BID #60 caps 03/30/22 dexamethasone 4 mg tablet 4 mg PO DAILY #2 tabs 03/30/22 docusate sodium 100 mg capsule 100 mg PO BID #30 caps 03/30/22 (Colace) gabapentin 300 mg capsule 300 mg PO QHS #14 caps 03/30/22 oxycodone 5 mg tablet 5 mg PO Q4H PRN severe 03/30/22 post-operative pain #18 tabs pantoprazole 40 mg tablet,delayed 40 mg PO DAILY #14 tabs 03/30/22 release Current Visit Medications: Current Medications Generic Name Dose Route Start Last Admin Trade Name Freq PRN Reason Stop Dose Admin Acetaminophen 1,000 mg 03/30/22 06:00 Acetaminophen 500 Mg Tab PO 03/30/22 18:00 PREOP MARLENY Acetaminophen 1,000 mg 03/30/22 14:00 Acetaminophen 500 Mg Tab PO TID MARLENY Aspirin 81 mg 03/30/22 20:00 Aspirin E.C. 81 Mg Tabec PO BID MARLENY Celecoxib 400 mg 03/30/22 06:00 Celecoxib 200 Mg Cap PO 03/30/22 18:00 PREOP MARLENY Celecoxib 200 mg 03/30/22 20:00 Celecoxib 200 Mg Cap PO BID MARLENY Dexamethasone 4 mg 03/31/22 08:30 Dexamethasone 4 Mg Tab PO 04/01/22 08:31 DAILY MARLENY Docusate Sodium 100 mg 03/30/22 07:33 Docusate Sodium 100 Mg Cap PO BID PRN PRN Constipation Gabapentin 300 mg 03/30/22 06:00 03/30/22 07:47 Gabapentin 300 Mg Cap PO 03/30/22 18:00 300 mg PREOP MARLENY Administration Gabapentin 300 mg 03/30/22 22:00 Gabapentin 300 Mg Cap PO HS MARLENY Hydromorphone HCl 0.5 mg 03/30/22 07:33 Hydromorphone 2 Mg/Ml Syr IVP Q2H PRN PRN Ringer's Solution 1,000 mls @ 80 mls/hr 03/30/22 06:00 IV 03/30/22 23:59 INFUSION MARLENY Cefazolin Sodium/Dextrose 2 gm in 50 mls @ 100 mls/hr 03/30/22 06:00 Ancef Duplex IVPB 03/30/22 23:59 PREOP [facility] Tranexamic Acid 1,000 mg/ 60 mls @ 360 mls/hr 03/30/22 06:00 Sodium Chloride IVPB 03/30/22 18:00 PREOP MARLENY Cefazolin Sodium/Dextrose 1 gm in 50 mls @ 100 mls/hr 03/30/22 08:00 Ancef Duplex IVPB 03/31/22 00:29 Q8H [facility] IV Miscellaneous Supplies 1 each 03/30/22 06:00 Iv Access IV 03/30/22 23:59 DIRECTED [facility] Ondansetron HCl 4 mg 03/30/22 07:33 Ondansetron 4 Mg/2 Ml Vial IVP Q6H PRN PRN Nausea Oxycodone HCl 0 mg 03/30/22 07:33 Oxycodone 5 Mg Tab PO Q3H PRN PRN Pain Pantoprazole Sodium 40 mg 03/31/22 07:30 Pantoprazole 40 Mg Tabcr PO DAILY@0730 MARLENY Polyethylene Glycol 17 gm 03/30/22 07:33 Polyethylene Glycol 3350 17 Gm Packet PO BID PRN PRN Constipation Sodium Chloride 0 ml 03/30/22 06:00 Normal Saline Flush 10 Ml Syr IV 03/30/22 23:59 PRN PRN Sodium Chloride 0 ml 03/30/22 06:00 Normal Saline 10 Ml Vial IJ 03/30/22 23:59 DIRECTED PRN Sterile Water 0 ml 03/30/22 06:00 Water,Injection,Sterile 10 Ml Vial IJ 03/30/22 23:59 DIRECTED PRN PFSH Active Problems Active Problems: Problem Status Onset Code Left knee DJD M17.12 Degenerative joint disease of right knee M17.11 History of total left hip arthroplasty 02/17/22 Z96.642 Asthma J45.909 Anemia D64.9 Medical History Medical History History of asthma History of kidney stones Surgical History Surgical History History of appendectomy History of tonsillectomy Tobacco Smoking/Tobacco Use Status: Never Alcohol Alcohol Intake: current Alcohol intake frequency: a few times a week Alcohol type: hard liquor Substance Use Substance use: Never Vital Signs and Lab Results Vital Signs Most Recent Vital Signs in EMR: Most Recent Vital Signs Temp Pulse Resp BP Pulse Ox 36.4 C L 120 H 18 136/87 99 03/30/22 07:36 03/30/22 07:36 03/30/22 07:36 03/30/22 07:36 03/30/22 07:36 Lab Results Blood Type / Crossmatch: No Data to Display Complete Blood Count: White Blood Count 10.14 10^3/uL (4.4-10.8) 03/22/22 10:42 Red Blood Count 5.09 10^6/uL (3.93-5.22) 03/22/22 10:42 Hemoglobin 14.3 g/dL (11.2-15.7) 03/22/22 10:42 Hematocrit 43.3 % (36.0-46.0) 03/22/22 10:42 Platelet Count 276 10^3/uL (130-400) 03/22/22 10:42 Complete Metabolic Panel: Sodium 140 mmol/L (136-145) 03/22/22 10:42 Potassium 4.1 mmol/L (3.5-5.1) 03/22/22 10:42 Chloride 103 mmol/L (98-107) 03/22/22 10:42 Carbon Dioxide 26.2 mmol/L (21.0-32.0) 03/22/22 10:42 BUN 20 mg/dL (7-18) H 03/22/22 10:42 Creatinine 1.0 mg/dL (0.55-1.02) 03/22/22 10:42 Est GFR (CKD-EPI 2020) 66.12 (mL/min/1.73m2) 03/22/22 10:42 Calcium 9.7 mg/dL (8.5-10.1) 03/22/22 10:42 Glucose 111 mg/dL (74-106) H 03/22/22 10:42 Liver Function Panel: No Data to Display Coagulation Panel: No Data to Display Cardiac Panel: No Data to Display Arterial Blood Gas: No Data to Display Venous Blood Gas: No Data to Display Pancreas Panel: No Data to Display Thyroid Panel: No Data to Display Infectious Disease: No Data to Display Blood Cultures: No Data to Display Toxicology Panel: No Data to Display Anesthesia Assessment and Plan Anesthesia History Personal History: PONV Family History: No Family History of Anesthesia Complications Exercise Tolerance Exercise Tolerance: Metabolic Equivalents>4 Pertinent Negatives Pertinent Negatives: No Symptoms of GERD, No Major Cardiovascular Symptoms or Complaints, No Major Pulmonary Symptoms or Complaints and No History of CVA/TIA Cardiac & Pulmonary Exam Cardiac Exam: Normal S1/S2 Heart Sounds Pulmonary Exam: Clear Bilateral Breath Sounds Implantable Cardiac Device Does patient have a Pacemaker or an ICD?: No Airway Exam Known Difficult Airway: No Mallampati Class: 1 Mouth Opening: Normal (> 3cm) Thyromental Distance: Greater than 3 cm Neck Range of Motion: Full ROM Neck Circumference: Normal Teeth Condition: Normal Dentition ASA Classification ASA Score: ASA 2 Emergency Case?: No NPO Status NPO Status: NPO Clears >2 hours, Solids >8 hours Anesthesia Plan Resuscitation Status: Full Code Anesthesia Technique: Spinal Anesthesia Airway Planned: Natural Airway Pain Management: Surgeon and patient request nerve block Monitors Used: Standard Monitors
[2022-03-30] MEDS: Lactated Ringers 1,000 ML 80 ML IV (08:48)
[2022-03-30] MEDS: ceFAZolin 2 GM/50 ML BAG IVPB (09:02)
--- NOTE | 2022-03-30 09:31 | W.ANESNERVE ---
Nerve Block Single Injection Procedure Date and Time Date Performed: 03/30/22 Procedure Start: 08:53 Location Where Procedure Performed Procedure Location: Day Surgery Unit Reason Performed: Postoperative Analgesia Requesting Provider: Rah Osuna Timeout Performed Timeout Performed: Yes Monitoring Used ECG, Blood Pressure, SpO2 and See EMR for corresponding vital signs Sterility Sterility: Hand Hygiene, Surgical Cap, Surgical Mask, Sterile Gloves, Sterile Drape/Sheet and Chlorhexidine Sedation Given During Procedure Sedation Given (Indicate Dose Given): No Sedation given Patient Mental Status Patient Mental Status: Awake Nerve Block 1st Nerve Block: Laterality: Right Block Type: Adductor Canal Needle / Catheter Used: 100mm SonoPlex II Local Anesthetic Bolus (Indicate Dose Given): Lidocaine used for local infiltration of skin, Injected in 3-5ml increments after negative blood aspiration and Bupivacaine 0.25% Dose:: 15 ml Additives (Indicate Dose Given): None Ultrasound: Sterile probe cover and gel used Ultrasound Image Saved?: Yes Nerve Stimulator: Not Used Paresthesia: None Procedure Tolerated: No Complications Procedure Outcome: Successful Performed By: Kati Hylton
[2022-03-30] MEDS: fentaNYL 100 MCG/2 ML VIAL IVP ×2 (11:38→11:45)
[2022-03-30] MEDS: diazePAM 10 MG/2 ML SYR 5 MG IVP (11:51)
--- NOTE | 2022-03-30 13:01 | IN_ITS ---
Date of service: 03/30/22 Time of Service: 13:30 PT Notes Visit Reasons: Right knee DJD Physical Therapy Day Surgery Initial Evaluation Date: 03/30/2022 Referring Doctor: GREGG Bower PT Orders: PT CONSULT: S/P Ortho Surgery Precautions: WBAT on R LE with AD. Patient Profile/Admitting Diagnosis: Nedra is a 56-year-old female patient with degenerative joint disease of the R knee and is S/P R total knee arthroplasty on postoperative day 0. PMHX: All Active Problems? History of total left hip arthroplasty (Acute 02/17/22) Asthma (Chronic) Anemia (Chronic) Bilateral primary osteoarthritis of knee (Acute) Medical History? History of asthma History of kidney stones Surgical History? History of appendectomy History of tonsillectomy Social History/Home Situation: Lives with in a private home they recently moved into in [place], [place] with three steps to enter with rails on B sides.? Independent with 4WW prior to surgery.? Has been using a hinged brace on the left due to an old L knee injury she had in college playing basketball. Equipment Owned/DME: 4WW, FWW Subjective: Reports 5-6/10 pain in the R knee incision site at rest and with weight bearing. Objective: General Observation: Supine on stretcher.? In NAD. EVA wrsps to R LE. Croycuff to R knee. TEDS to L leg.? Slight genu valgum noted in R Mental Status: Alert and oriented x 4 Pain: Initially at 6/10 in the R knee and the L hip;? went down to 2/10 in same areas with weight bearing/movement ROM: Right Lower Extremity: Hip flexion WFL. Hip abduction WFL. Knee flexion 45 degrees to 90 degrees. Knee extension -45 degrees. Ankle dorsiflexion WFL. A nkle plantarflexion WFL. Left Lower Extremity: Hip WFL. Hip abduction WFL. Knee flexion 10 degrees to 90 degrees.? Knee extension -10 degrees.? Ankle dorsiflexion WFL. Ankle plantarflexion WFL. Strength: Right Lower Extremity: Hip flexors 4-/5. Hip abductors 4-/5. Knee flexors 3-/5. Knee extensors 3-/5. Ankle dorsiflexors 4-/5. Ankle plantarflexors 4-/5. Left Lower Extremity:? Hip flexors 3-/5. Hip abductors 3-/5. Knee flexors 3-/5. Knee extensors 3-/5. Ankle dorsiflexors 4-/5. Ankle plantarflexors 4/5. Sensation: Denies numbnenss and tingling in B LE.? Intact as to pain and light pressure in B LE Bed Mobility/Transfers: Supine to sit stand by assist Sit to stand stand by assist Stand to sit stand by assist Bed to chair stand by assist Gait: 150 feet of level surface ambulation using front-wheeled walker with step to gait pattern, standby assist provided.? Genu valgum on the right side noted.? Stairs: Up and down 3 x 4-inch steps and 2 x 6-inch steps while holding onto B rails wi contact guard assist,? stand by assist proviced. THERA EX: Reviewed and trained with HEP in reference to written [employer] [place] exercises provided to patient-? Supine heel slides to about 30 degrees x 5 ? Quads sets x 5 ? Gluteal sets x 5 Straight leg raise to about 10 degrees x 2 with report of pain ? LAQs x 5 ` ? Balance: Static Sitting: Normal Dynamic Sitting: Normal Static Standing: Fair Dynamic Standing: Fair Special Tests: Mobility Limitations Standardized Measure [facility] 6 clicks Basic Mobility Inpatient Short Form: Raw Score: 24 ? CMS Score: 0% deficit Informed Consent/Education:? Patient instructed in purpose of PT consult.? Packet containing TKA exercise protocol has been given to patient.? Education and training on initial set of exercises that can be done at home have been completed with patient. Assessment: Patient requires the use of a front-wheeled walker for all mobility ADL performance to maximize independence and reduce fall risk.? Patient presents with clinical signs and symptoms consistent with current/admitting diagnoses that have resulted to mobility limitations, gait instability, generalized weakness, and impairment of motor control as demonstrated by the following impairment level findings: 1.? Decreased strength right knee major muscle groups 2.? Impaired standing balance 3.? Limitation of joint range of motion in right knee Impairments are contributing to the following functional limitations: 1.? Inability to safely ambulate without assistive device 2.? Increase completion time for mobility ADL performance 3.? Increased fall risk Patient is assessed as a 92819 moderate complexity based on the following: History: 56-year-old female with impairment level findings, functional limitations, and past medical history as indicated above Examination: Demonstrable impairment in strength, balance, and mobility level with underlying impairments and functional limitations as documented above Presentation: Evolving Decision Makin moderate complexity Goals: N/A.? PT evaluation and 1-2 treatment sessions only for functional mobility training using recommended AD and for HEP instruction. Plan of Care/Treatment Plan: N/A.? PT evaluation and 1-2 treatment session only for functional mobility training using recommended AD and for HEP instruction. DISCHARGE RECOMMENDATIONS: [] ? Home with no services [] [] ? Home with services [specify] [X] ? Home with outpatient PT. Home when cleared by surgeon.? Will benefit from outpatient PT services to optimize functional mobility outcomes and facilitate return to independent community ambulation without an assistive device. [] ? SNF for continued rehabilitation [] [] ? Conformal Pad Former Care [] [] ? SNF versus LTC based on ability to participate and progress [] TREATMENT CODE/TIME: 9716 2 x 20 minutes, 9753 0 x 11 minutes beginning at 13:01 PM. Thank you for the opportunity to participate in the care of this patient. Rola Espinoza PT, DPT, CLT [facility] [place], [place]
--- NOTE | 2022-03-30 13:01 | W.ANESPOSTOP ---
Postoperative Evaluation Date, Time and Location Date Performed: 03/30/22 Time Performed: 13:02 Patient Location: Day Surgery Unit Vital Signs Most Recent Imported Vital Signs: Most Recent Vital Signs Temp Pulse Resp BP Pulse Ox 36.4 C L 84 18 132/84 96 03/30/22 12:40 03/30/22 12:40 03/30/22 12:40 03/30/22 12:40 03/30/22 12:40 Pain Score Most Recent Pain Score: Most Recent Pain Score Pain Level 5 03/30/22 12:40 Assessment Mental Status: Awake (Alert & Oriented to Patient Baseline) Airway and Respiratory Function: Patent airway with normal (patient baseline) respiratory exam Cardiovascular Function: Hemodynamically Stable Hydration Status: Adequately Hydrated Nausea & Vomiting: No Nausea or Vomiting Pain: Pain is tolerable per patient (5/10) Peripheral Nerve Block: Regional nerve block not resolved at time of post operative discharge Teaching Patient Teaching: Discussed Safe Use of Pain Medication Given Recent Anesthesia
[2022-03-30] MEDS: oxyCODONE 5 MG TAB PO (13:06)
--- NOTE | 2022-03-30 14:26 | ROE_ITS ---
Date of service: 03/30/22 Time of Service: 11:00 Operative Note Operative Note DATE OF PROCEDURE: 03/30/22 PRE-OP DIAGNOSIS: Right Knee Osteoarthritis POST-OP DIAGNOSIS: same PROCEDURE: Right Total Knee Replacement with Intraoperative Navigation SURGEON: Rah Osuna ANESTHESIA TYPE: Spinal Refer to Anesthesia Record PATHOLOGY: none sent TOURNIQUET TIME: 0 COMPLICATIONS: None Patient was transported to: PACU Patient's condition: stable Implants: 1. Depuy Attune Cementless Posterior Stabilized Femoral Component, Size 6 Narrow 2. Depuy Attune Cementless Rotating Platform Tibial Component, Size 5 3. Depuy Attune 6x10 PS/RP Poly 4. Depuy Attune Patellar Component, Size 35 Indications: I have seen Nedra in clinic for symptoms of RIGHT knee arthritis, confirmed with radiographic findings. Mani has exhausted nonoperative methods and was having significant limitations in daily function and desired better function and less pain. I discussed the technical details of a knee replacement. I explained the risks of the procedure to include, but not limited to, bleeding, infection, pain , stiffness, fracture, damage to nerves and vessels, damage to muscles and tendons, loosening, need for repeat procedure, blood clot and cardiopulmonary demise. Despite these risks, Nedra elected to proceed. Findings: There was significant signs of arthritis throughout the knee involving all 3 compartments but significant of the lateral tibia. There was notable contracture with preoperative range of motion of 15-85 degrees. Procedure Description: Nedra was greeted in the preoperative holding area where the correct side was identified and marked. The consent was reviewed with the patient and signed. The history and physical was updated. All questions were answered. Preoperative mediacations were administered: Acetaminophen 1000mg, Celebrex 400mg, and Gabapentin 300mg. An adductor canal block was then administered by the anesthesia team in the PACU. She was taken back to the operating room. A spinal anesthestic was then administered. The patient was placed into the supine position on the operating room table. A nonsterile tourniquet was placed high onto the leg. Posts were p laced for positioning during the procedure. All bony prominences were well padded. Prophylactic antibiotics in the form of Cefazolin were administered. 1g of Tranxemic Acid was given intravenously within 30 minutes of incision. The right leg was then prepped with Chloraprep and draped in a standard fashion with impervious stockinette. A second prep with Chloraprep was performed prior to application of Iodine impregnated skin protection. A timeout to confirm correct identity, side and site, procedure, allergies, anesthesia, and medical concerns was performed. With the knee in some flexion, a midline incision was made overlying the knee. Full thickness skin flaps were raised once the extensor mechanism was encountered. These were raised medially and laterally. Any bleeding was cont rolled with electrocautery. Once the extensor mechanism was fully exposed, a medial parapatellar arthrotomy was performed in a flexed position. All bleeding from the arthrotomy and the geniculate arteries was coagulated. A medial subperiosteal peel was performed with electrocautery to the midcoronal plane. The fat pad was removed while keeping the patellar tendon protected. The anterior distal femur synovium was removed for later visualization. The ACL and PCL were resected and the anterior horn of the lateral meniscus was transected. The knee was then flexed with the patella everted. Large osteophytes from the tibia were removed. Large osteophytes from the femur were removed. A single starting pin was then placed 1cm anterior to the PCL insertion and the notch in the direction of the femoral head. The OrthoAlign device was applied over the pin. It was oriented to be in line with the epicondylar axis and the trochlear groove. It was then pinned into place. The navigation computer was then turned on and calibrated. The distal femur cut was set at 0 degrees varus/valgus and 3 degrees flexion. The distal femur cutting guide then was positioned for a 11mm cut. The distal femur was cut with an oscillating saw while protecting the soft tissues. The tibia was then addressed. The OrthoAlign device was placed over the tibial tubercle and medial tibia and secured into position. Once again, OrthoAlign was calibrated and then set for a 2 degree varus cut and 3 degrees of posterior slope. With this locked into position, the cut thickness stylus was used to ass ess cut thickness. The lateral side, most involved side, was set for a 4mm cut. This was then held in position and pinned into place with 2 additional pins and a cross pin for stability. The medial and lateral collateral ligaments were protected and the cut was performed. With this completed, it was assessed and noted to be of appropriate dimensions. The guide and OrthoAlign was removed. A spacer block was inserted and the knee was brought into extension to ensure enough space was present. The lateral compartment was tight. Additional release of the lateral capsule and the IT band was performed around the proximal tibia. The popliteus was also recessed. The femur was then sized as a size 6 narrow. The Orthoalign gap balancing device was then placed in extension. This was used to ensure that the ligaments were properly balanced with up to 2 to 3 mm laxity laterally compared medially. The extension gap was measured as 17-18mm. The knee was then brought into 90 degrees of flexion and the ligament training and development officer was once again placed. Under the same amount of force the flexion gap was measured. The attending specific jig was placed and the flexion gap was made to match the extension gap. The 4-in-1 cutting guide was the placed. An natasha wing was used to confirm appropriate position of the anterior cut to avoid notching. This cutting guide was ensured to be flush on the cut surface and then pinned into place with headed pins. While protecting the soft tissues, quad tendon, and collateral ligaments, the anterior and posterior cuts were performed with a saw. The norbert tral two pins were removed and the posterior and anterior chamfers were cut next. The notch-cutting guide was placed. This was pinned to lateralize the femoral component as much as possible while keeping it flush on the cut surface. This was then pinned into position. A saw was used to make the notch cut. A rasp smoothed the cut surfaces. The medial and lateral menisci were removed. A tri al femoral component was then inserted, impacted down to the cut surfaces, and the lug holes were drilled. A provisional trial tibial component was placed and the knee was brought through range of motion. The polyethylene was trialed until there was good flexion and extension with excellent stability to the medial and lateral collaterals. The patella was tracking without thumbs. A size 10mm polyethylene component provided the best range of motion and stability with less than 2mm gapping with medial and lateral stress and full extension without significant hyperextension. The tibial cut surface was fully exposed. The tibia was then sized as a 5. The tibia had been previously marked during trialing to correspond to the center of the tibial component to help with rotation. The trial was aligned to this phuong, approximately rotated to the medial 1/3rd of the tibial tubercle. The trial was pinned into place. The tibia was prepared with a reamer and a keel punch and lug holes. The knee was then brought into extension and the patella was measured as 25mm. Using the patellar clamp and cut guide, this was resected to a flat surface with at least 13mm of thickness remaining. The size 35 patella fit the best. This was oriented and then clamped into position. The lugs were drilled. The trial components were removed. The final components were opened on the back table. The periosteal and capsular tissues, especially posteriorly, around the knee were then systematically injected with a periarticular cocktail consisting of 246mg of Ropivacaine, 0.5mg of Epinephrine, 0.08mg of Clonidine, and 30mg of Ketorolac, diluted to 100cc. On the back table, with the implants opened, the cement was mixed. One batch of high viscosity cement was prepared with vacuum assistance. After the cement was ready a small amount was placed on the cut surface of the patella and the patellar button was clamped into position and held. While the cement was hardening, the cementless knee components were placed. Starting with the tibial component, the tibia was subluxed anteriorly and the lug holes of the component were lined up. The tibia was then impacted with an impactor and mallet until the tibial component was in contact with the tibia. Then, the femoral component was inserted. The lug holes were aligned and the component was impacted into position. The final polyethylene was then inserted. The knee was irrigated with Surgiphor Betadine solution. This was allowed to sit in the knee for 3 minutes and then it was thoroughly irrigated out with saline. After the cement had finally cured, approximately 15min, the clamp was removed from the patella and the knee was taken through range of motion. The patella was tracking with a no-thumbs technique. The capsule was then reapproximated with a No. 1 Vicryl at multiple locations. The capsule was finally closed with a No. 2 Stratafix, barbed suture. The second dosing of 1g TXA was started. Deep tissues were then reapproximated with 0 Vicryl and 2-0 Monocryl. The skin was closed with a running 3-0 Monocryl in a subcuticular fashion. This was reinforced with skin glue. A Mepilex silver dressing was applied along with a [id number]-[id number] EVA wrap. A CryoCuff was applied. Nedra was transferred to the hospital bed without difficulty an suffering no apparent complication. Nedra has a good prognosis. Physical therapy will start today and without restrictions, weight-bearing as tolerated. Aspirin 81mg BID will be used for DVT prophylaxis.
== END 2022-03-30 14:55 | disposition home or self-care (01) ==
PROVIDERS: Visit Provider Student in an Organized Health Care Education/Training Program
PROC: (CPT 27447; principal; 2022-03-30 10:30)
DX: M17.11 Unilateral primary osteoarthritis, right knee (principal); J45.909 Unspecified asthma, uncomplicated; D64.9 Anemia, unspecified
CPT/HCPCS: 27447; 20985; 76942; 97162; 97530; J0690; J1100; J2250; J3010; J3360

== ENCOUNTER 2022-04-12 14:00 | Outpatient (CLI) | payer BC, SELFPAY ==
--- NOTE | 2022-04-12 14:16 | DI.RAD_ITS ---
Exam(s) XR KNEE RT 1V XR STANDING ALIGNMENT EXAM: XR STANDING ALIGNMENT CLINICAL HISTORY: 1ST POST OP R TKA. TECHNIQUE: 2D digital imaging was performed. Standing AP views were performed from the pelvis throu gh the ankles. Lateral view right knee COMPARISON: CR XR STANDING ALIGNMENT from 03/10/2022 CR XR KNEE RT 1V from 04/12/2022 FINDINGS: BONES: No acute fracture is present. No bony destructive lesion is seen. JOINTS: Knees: Status post placement of a right total knee prosthesis which shows satisfactory alignm ent. Improved valgus angulation on the right. Severe degenerative changes of the lateral femoral ti bial joint space of the left knee, stable with prominent valgus angulation. The ankle joints show bilateral medial talar tilt. Medial degenerative changes. The right hip is unremarkable. There is a left hip prosthesis.. SOFT TISSUE: Mild soft tissue edema bilateral lower legs, right greater than left. IMPRESSION: Severe degenerative changes left knee. Status post placement of right knee prosthesis.. DATA REPOSITORY: RADIATION DOSE DELIVERED:
== END 2022-04-12 14:01 | disposition home or self-care (01) ==
LOC: DIORS 04-13 08:53
PROVIDERS: Visit Provider Student in an Organized Health Care Education/Training Program
DX: Z96.651 Presence of right artificial knee joint (principal); M17.12 Unilateral primary osteoarthritis, left knee
CPT/HCPCS: 73560; 77073

== ENCOUNTER 2022-07-27 18:37 | Outpatient (REF) | payer OTHER, SELFPAY ==
--- NOTE | 2022-07-27 10:10 | PAPFT_PTH ---
PATIENT: Nedra Handy LOC: [facility]#:[id number] AGE/SX: 56/F ROOM: RE07/27/[address]: Conner Florian : 1965 BED: DIS: 07/27/2022 SPEC #: [id number] RECD: 07/28/22 13:01 STATUS: GABBY REJuan C #: [id number] SANDY: 07/27/22 10:[address]: Jacqueline Florianlaide DEPT[facility] Cytology RECD BY: Jolene Robles Tissues: 1 - CX/ENDOCX FOR PAP SMEARS Procedures: PAP THIN PREP/UVM Screening HPV DNA PROBE Comments: [id number]
[2022-07-27 20:20] LABS: ALT 29 U/L (14-59); AST 22 U/L (15-37); Albumin 3.7 g/dL (3.4-5.0); Alkaline Phosphatase 109 U/L (46-116); Anion Gap 9.7 mmol/L (3-11); BUN 22 mg/dL (7-18); Bilirubin, Total 0.3 mg/dL (0.2-1.0); CO2 25.3 mmol/L (21.0-32.0); CREATININE 1.2 mg/dL (0.55-1.02); Calcium 9.9 mg/dL (8.5-10.1); Calculated LDL 101 mg/dL (<100); Chloride 106 mmol/L (98-107); Cholesterol 183 mg/dL (<200); Estimated GFR 53.13 (mL/min/1.73m2); Glucose 108 mg/dL (74-106); HDL Cholesterol 57 mg/dL (40-60); Potassium 4.7 mmol/L (3.5-5.1); Sodium 141 mmol/L (136-145); Total Protein 7.9 g/dL (6.4-8.2); Triglyceride 126 mg/dL (<150)
== END 2022-07-27 18:38 | disposition home or self-care (01) ==
LOC: NCHCN 18:37
PROVIDERS: Visit Provider Nurse Practitioner Family
DX: Z00.00 Encounter for general adult medical examination without abnormal findings (principal); Z13.220 Encounter for screening for lipoid disorders; Z13.228 Encounter for screening for other metabolic disorders; Z12.4 Encounter for screening for malignant neoplasm of cervix; Z01.419 Encounter for gynecological examination (general) (routine) without abnormal findings; Z11.51 Encounter for screening for human papillomavirus (HPV)
CPT/HCPCS: 80053; 80061; 88142; 87624

== ENCOUNTER 2022-10-13 01:55 | Outpatient (CLI) | payer OTHER, SELFPAY ==
[2022-10-13] MEDS: Normal Saline Flush 10 ML SYR IVP (12:18)
[2022-10-13] MEDS: Gadoterate meglumine 20 ML SYRINGE IVP (12:18)
--- NOTE | 2022-10-13 12:45 | DI.MRI_ITS ---
Exam(s) MR IAC BRAIN WO/W EXAM: MR IAC BRAIN WO/W CLINICAL HISTORY: Asymmetrical hearing loss,dizziness,h90.3,r42 TECHNIQUE: Multiplanar multisequence MRI of the brain was performed. Both noninfused and contrast i nfused sequences were performed. IV Contrast injected was cc Dotarem. COMPARISON: No exams were available for comparison FINDINGS: CEREBRAL PARENCHYMA: There is a uniformly enhancing mass in the left cerebellopontine angle with ariana r extension into the internal auditory canal, consistent with acoustic schwannoma-neuroma. This jamison ures approximately 1.9 cm AP by 1.8 cm wide by 2 cm cephalocaudal. The medial aspect of this mass im pinges upon the ipsilateral trigeminal-5th cranial nerve as it exits the lateral aspect of the andreas. The opposite-right cerebellopontine angle is unremarkable. There is also no evidence of intra canali cular acoustic schwannoma-neuroma on the right side. There are no other enhancing lesions in the brain and extra-axial spaces. Ventricular size is normal . No evidence of hemorrhage, intra or extra-axial. There is no abnormal signal abnormality in the periventricular white matter. DWI: No areas of restricted diffusion to suggest acute ischemic event. SWI: No microhemorrhages evident. There are no ring enhancing lesions in the brain. There is no abnormal meningeal enhancement. PITUITARY GLAND: No mass nor parasellar abnormality. No obvious abnormality in the cavernous sinuses. FLOW VOIDS: The expected flow void are noted. No evidence of obvious aneurysm nor obvious vascular ma lformation. PARANASAL SINUSES: The visualized paranasal sinuses appear unremarkable. Frontal sinuses are not deve loped. ORBITS: No obvious abnormal findings. IMPRESSION: 1. There is a uniformly enhancing mass in the left internal auditory canal with prominent component i n the left cerebellopontine angle, consistent with acoustic schwannoma-neuroma. This measures approx imately 19 x 18 x 20 mm. There are no other enhancing lesions in the brain and extra-axial spaces. 2. Other considerations are for meningioma or enhancing metastatic lesion although these are less lik carla. DATA REPOSITORY:
== END 2022-10-13 02:15 ==
LOC: DI 01:55
PROVIDERS: PCP Nurse Practitioner Family; Visit Provider Registered Nurse Maternal Newborn
DX: R42 Dizziness and giddiness (principal); H90.3 Sensorineural hearing loss, bilateral; D33.3 Benign neoplasm of cranial nerves
CPT/HCPCS: 70553

== ENCOUNTER 2022-10-14 18:21 | Emergency (ER) | payer OTHER, SELFPAY ==
[2022-10-14 18:25] VITALS: BP 139/101; PULSE 90; RESP 18; TEMP 36.2; O2SAT 98
== END 2022-10-14 19:41 | disposition left against medical advice (07) ==
PROVIDERS: PCP Nurse Practitioner Family
DX: Z53.21 Procedure and treatment not carried out due to patient leaving prior to being seen by health care provider (principal)

== ENCOUNTER 2022-11-19 10:22 | Outpatient (CLI) | payer OTHER, SELFPAY ==
--- NOTE | 2022-11-19 09:00 | DI.RAD_ITS ---
Exam(s) XR KNEE LT 3V AP,LAT,VIET EXAM: XR KNEE LT 3V AP,LAT,VIET CLINICAL HISTORY: L knee pain. TECHNIQUE: 2D digital imaging was performed. COMPARISON: CR XR STANDING ALIGNMENT from 03/10/2022 CR XR KNEE RT 1V from 04/12/2022 FINDINGS: 3 views No evidence of fracture or prominent joint effusion. There is [id number]-[id number] narrowing of the lateral compartment as seen on the weight-bearing view. Media l compartment exhibits normal height. Moderate degenerative changes are noted in the patellofemoral compartment. No osseous lesions. IMPRESSION: Advanced degenerative narrowing of the lateral compartment. Also marginal osteophytes DATA REPOSITORY: RADIATION DOSE DELIVERED:
== END 2022-11-19 10:23 | disposition home or self-care (01) ==
LOC: DIORS 10:22
PROVIDERS: PCP Nurse Practitioner Family; Referring Provider Nurse Practitioner Family; Visit Provider Physician Assistant
DX: M17.12 Unilateral primary osteoarthritis, left knee (principal); M25.762 Osteophyte, left knee
CPT/HCPCS: 73562

== ENCOUNTER 2023-01-07 09:00 | Day surgery (SDC) | payer OTHER, SELFPAY ==
--- NOTE | 2023-01-06 11:14 | PDOC.DSDIS_ITS ---
Date of service: 01/07/23 Time of Service: 10:32 Discharge Plan Disposition Patient Disposition: Home Discharge Details Reason For Visit: Colon cancer screening Attending Provider: Linnette Matute Primary Care Provider: Rosibel Florian Home Meds and New Rx's Prescriptions: Continued cholecalciferol (vitamin D3) 10 mcg (400 unit) capsule 10 mcg PO DAILY coenzyme Q10 [Co Q-10] 10 mg capsule 10 mg PO ONCE omega 0-iwv-dmz-fish oil [Fish Oil] 60-90-500 mg capsule 1 cap PO DAILY ascorbate calcium (vitamin C) 500 mg tablet 500 mg PO DAILY epinephrine [EpiPen] 0.3 mg/0.3 mL auto-injector 0.3 mg IM ONCE Rx Instructions: as a single dose; may repeat once ibuprofen 200 mg capsule 200 mg PO Q6H PRN acetaminophen 500 mg tablet 500 mg PO Q6H PRN (Reason: pain) Qty: 60 2RF Discontinued polyethylene glycol 3350 17 gram/dose powder 238 g PO ONCE Qty: 238 0RF Rx Instructions: take per colonoscopy instructions bisacodyl [Dulcolax (bisacodyl)] 5 mg tablet,delayed release (DR/EC) 5 mg PO ONCE Qty: 4 0RF Rx Instructions: take per colonoscopy instructions Discharge Instructions Additional Instructions: DSU Colonoscopy Post- Op Instructions Instructions for Everyone who is given Anesthesia: For your safety, please do the following for the next twenty-four (24) hours: *Do Not operate a motor vehicle (car, truck, motorcycle, etc.) *Do Not drink alcoholic beverages or use any recreational drugs for the first 24 hours or while taking pain medications. The medications in your body may have a reaction that can be dangerous. *Do Not make any important decisions or sign any important papers. Findings: Diverticula of the colon. Make sure you are moving your bowels on a regular basis and not straining to go to the bathroom. Consider starting a fiber supplement daily such as Metamucil or psyllium husk's. Small polyp Follow up: My office will send you a letter in 2 to 3 weeks time with the results of the pathology and when we want you to repeat the colonoscopy, most likely 10 years time. 1. No lifting over 20 pounds or strenuous activity for the first 24 hours after your procedure. After 24 hours there are no restrictions on your activity but you may feel fatigued for a few days. 2. After you arrive home you may have a light meal and return to your normal diet as you can tolerate it without feeling sick to your stomach. 3. You may have a bloated, gaseous feeling in your belly (abdomen) after a colonoscopy. Passing gas and belching will help. Walking or lying down on your left side with your knees flexed may relieve the discomfort. Call the office at [phone] (Office) or [phone] (Hospital) right away if you notice any of the following: a.Vomiting of blood or ?coffee ground stools?. b.Rectal bleeding 1Tbsp, blood clots or continuous bleeding. c.Severe belly (abdominal) pain. d.A hard distended belly (abdomen) and an inability to pass gas. 4. Please don?t expect to have a normal BM (bowel movement) for 2-3 days after your procedure. 5. If there are questions regarding the findings of your procedure, please contact your doctor 6. If you are unable to contact your doctor with a problem, contact the hospital at [phone]. 7. Continue all your regular medications unless directed otherwise. I understand the above instructions and have no questions. Signature of Patient or Adult Escort Name of Responsible Adult Escort Signature of Nurse Date/Time Stand Alone Forms: Oanh Butterfield (DSU) Activity:: See above Diet:: See above Discharge Orders Discharge Orders: Discharge Order (Routine); Ordered 01/07/23 Ordered By: Linnette Matute DS: Diagnosis Discharge Diagnosis (1) Screening for malignant neoplasm of colon performed: Status: Acute Asessment and Plan: The patient is seen and examined after their colonoscopy.? The patient has been able to pass gas.? They are not having abdominal pain.? They have been able to tolerate liquids and a snack.? They do not have any nausea or vomiting.? They are not having any chest pain or shortness of breath.??? They are not having any rectal bleeding. Their vital signs have been stable-see nursing notes. We discussed findings during their colonoscopy, and any biopsies that were done/polyps that were removed. The patient will be sent a letter with any biopsy results, and when to repeat the colonoscopy.-see discharge instructions. Patient was given explicit instructions to follow-up regarding colonoscopy-refer to discharge instructions.? We reviewed resumption of medications. Patient verbalized understanding and discharged in stable and satisfactory condition- See nursing notes. (2) Diverticula of colon: Status: Acute
--- NOTE | 2023-01-06 11:14 | W.COLOREPORT ---
Date of service: 01/07/23 Time of Service: 10:12 Colonoscopy Report Date of procedure: 01/07/23 Pre-op diagnosis general: Colon cancer screening Post-op diagnosis procedure note: other (Small polyps in the rectum/diverticula) Surgeon: Linnette Matute Anesthesia Type: General:No Airway Estimated blood loss (mL): 1 Pathology: other Complications: None Disposition: same day Prep: Miralax/Dulcolax Retraction Time: 8 Procedure Description: After informed consent was obtained the patient was taken to the procedure room and placed in a left decubitous position. Monitors were applied and a time out was done. The patients name, date of , procedure, allergies to medications and metal in their body was reviewed. The patient was then sedated. Once sedated and comfortable a rectal exam was done. External exam was normal. Internal exam revealed a normal sphincter tone and no palpable masses. The scope was then introduced and retrofelexed. internal hemorrhoid. al tags Were identified. The scope was then advanced to the cecum without difficulty. The TI and appendiceal orifice were identified. The prep was BBPS 3 in all segments for a total of 9. The scope was then slowly retracted over 8 minutes back into the rectum. She had multiple small flat 5 mm polyps in the rectum that were most likely hyperplastic. 2 of these were sampled using a cold biting forcep. All specimen is retrieved and no bleeding is noted. She does have few, but large mouth diverticula that do extend all the way through the transverse colon but not to the right colon. There is no signs of active bleeding or infection. the scope was removed and the patient was woken up and taken back to Same day surgery in stable condition. The patient tolerated the procedure well and there were no immediate complications. Follow up: The patient should follow up in 7-10, path pending, years unless they develop changes in bowel habits or other new gastrointestinal complaints.
--- NOTE | 2023-01-07 06:24 | ANES.PREOP_ITS ---
General Info Date of Service Date Performed: 01/07/23 Height: 6 ft Weight: 98.43 kg Body Mass Index (BMI): 29.4 Surgical Procedure: Operation Date: 01/07/23 09:50 Proposed Procedure Side Surgeon janis Matute, Meds Allergies and Home Medications Allergies Allergy/AdvReac Type Severity Reaction Status Date / Time guava Allergy Severe Anaphylaxis Verified 01/07/23 09:12 strawberry Allergy Severe Anaphylaxis Verified 01/07/23 09:12 tomato Allergy Severe Anaphylaxis Verified 01/07/23 09:12 Home Medication Medication Instructions Recorded ascorbate calcium (vitamin C) 500 500 mg PO DAILY 02/08/22 mg tablet cholecalciferol (vitamin D3) 10 10 mcg PO DAILY 02/08/22 mcg (400 unit) capsule coenzyme Q10 10 mg capsule (Co 10 mg PO ONCE 02/08/22 Q-10) omega 5-aua-dfp-fish oil 60 mg-90 1 cap PO DAILY 02/08/22 mg-500 mg capsule (Fish Oil) acetaminophen 500 mg tablet 500 mg PO Q6H PRN pain #60 tabs 03/30/22 epinephrine 0.3 mg/0.3 mL 0.3 mg IM ONCE 09/21/22 injection, auto-injector (EpiPen) ibuprofen 200 mg capsule 200 mg PO Q6H PRN 10/08/22 Current Visit Medications: Current Medications Generic Name Dose Route Start Last Admin Trade Name Freq PRN Reason Stop Dose Admin Hyoscyamine Sulfate 0.125 mg 01/07/23 09:27 Hyoscyamine 0.125 Mg Sl/Oral/Chew SL 02/06/23 09:26 DIRECTED PRN Ringer's Solution 1,000 mls @ 80 mls/hr 01/07/23 06:00 IV 02/05/23 23:59 [facility] IV Miscellaneous Supplies 1 each 01/07/23 06:00 Iv Access IV 02/05/23 23:59 DIRECTED [facility] Ondansetron HCl 4 mg 01/07/23 09:27 Ondansetron 4 Mg/2 Ml Vial IVP 02/06/23 09:26 Q4H PRN PRN Nausea / Vomiting Sodium Chloride 0 ml 01/07/23 06:00 Normal Saline Flush 10 Ml Syr IV 02/05/23 23:59 PRN PRN Sodium Chloride 0 ml 01/07/23 06:00 Normal Saline 10 Ml Vial IJ 02/05/23 23:59 DIRECTED PRN Sterile Water 0 ml 01/07/23 06:00 Water,Injection,Sterile 10 Ml Vial IJ 02/05/23 23:59 DIRECTED PRN PFSH Active Problems Active Problems: Problem Status Onset Code Screening for malignant neoplasm of colon performed Z12.11 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 Dizziness R42 Asymmetrical sensorineural hearing loss H90.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 Asthma J45.909 Anemia D64.9 Medical History Medical History AC (acromioclavicular) arthritis Decreased hearing of left ear History of asthma History of kidney stones Joint pain Kidney stones Osteoarthritis Primary osteoarthritis of first carpometacarpal joint Surgical History Surgical History History of appendectomy History of tonsillectomy History of total left hip arthroplasty (02/17/22) History of total right knee replacement (03/30/22) Tobacco Smoking/Tobacco Use Status: Never Alcohol Alcohol Intake: current Alcohol intake frequency: a few times a week Alcohol type: hard liquor Substance Use Substance use: Never Substance use type: does not use Vital Signs and Lab Results Lab Results Blood Type / Crossmatch: No Data to Display Complete Blood Count: No Data to Display Complete Metabolic Panel: No Data to Display Liver Function Panel: No Data to Display Coagulation Panel: No Data to Display Cardiac Panel: No Data to Display Arterial Blood Gas: No Data to Display Venous Blood Gas: No Data to Display Pancreas Panel: 2 No Data to Display Thyroid Panel: No Data to Display Infectious Disease: No Data to Display Blood Cultures: No Data to Display Toxicology Panel: No Data to Display Anesthesia Assessment and Plan Anesthesia History Personal History: No History of Anesthesia Complications Family History: No Family History of Anesthesia Complications Exercise Tolerance Exercise Tolerance: Metabolic Equivalents>4 Cardiac & Pulmonary Exam Cardiac Exam: Normal S1/S2 Heart Sounds Pulmonary Exam: Clear Bilateral Breath Sounds Implantable Cardiac Device Does patient have a Pacemaker or an ICD?: No Airway Exam Known Difficult Airway: No Mallampati Class: 1 Mouth Opening: Normal (> 3cm) Thyromental Distance: Greater than 3 cm Neck Range of Motion: Full ROM Neck Circumference: Normal Teeth Condition: Normal Dentition ASA Classification ASA Score: ASA 2 Emergency Case?: No NPO Status NPO Status: NPO Clears >2 hours, Solids >8 hours Anesthesia Plan Resuscitation Status: Full Code Anesthesia Technique: General Anesthesia Airway Planned: Natural Airway Monitors Used: Standard Monitors Preoperative Comments:: 57 yo female for colo. Sig PMHx: asthma, anemia, dizziness, never smoker, occ EtOH. Previous Anes: - TKA, spinal, prop sedation, no issues. - MICHELE, spinal, prop, natural airway, no issues.
[2023-01-07 09:15] VITALS: BP 120/91; PULSE 75; RESP 18; TEMP 36.5; O2SAT 98
[2023-01-07] MEDS: Lactated Ringers 1,000 ML 80 ML IV (09:26)
[2023-01-07 09:31] VITALS: BMI 29.4
--- NOTE | 2023-01-07 09:52 | BOWEL_PTH ---
PATIENT: Nedra Handy LOC: [facility] U#:[id number] AGE/SX: 57/F ROOM: RE01/07/[address]: Linnette Matute : 1965 BED: DIS: 01/07/2023 SPEC #: [id number] RECD: 01/07/23 11:19 STATUS: GABBY RE #: [id number] SANDY: 01/07/23 09:[address]: Linnette Matute DEPT: Surgical Specimen RECD BY: Jolene Robles ENTERED: 01/07/23 11:20 SP TYPE: Bowel OTHR DR: Conner Florian Tissues: 1 - BIOPSY BOWEL Procedures: GROSS AND MICRO LEVEL 4 Comments: [id number]
[2023-01-07 10:13] VITALS: BP 100/66; PULSE 80; RESP 16; TEMP 35.7; O2SAT 95
--- NOTE | 2023-01-07 10:17 | W.ANESPOSTOP ---
Postoperative Evaluation Date, Time and Location Date Performed: 01/07/23 Time Performed: 10:17 Patient Location: Day Surgery Unit Vital Signs Most Recent Imported Vital Signs: Most Recent Vital Signs Temp Pulse Resp BP Pulse Ox 36.5 C 75 18 120/91 H 98 01/07/23 09:15 01/07/23 09:15 01/07/23 09:15 01/07/23 09:15 01/07/23 09:15 Assessment Mental Status: Awake (Alert & Oriented to Patient Baseline) Airway and Respiratory Function: Patent airway with normal (patient baseline) respiratory exam Cardiovascular Function: Hemodynamically Stable Hydration Status: Adequately Hydrated Nausea & Vomiting: No Nausea or Vomiting Pain: Pt. Denies Any Pain Peripheral Nerve Block: Patient did not receive a nerve block
[2023-01-07 10:43] VITALS: BP 119/76; PULSE 67; RESP 18; TEMP 36.4; O2SAT 95
--- NOTE | 2023-01-07 10:55 | W.ANESPOSTOP ---
Postoperative Evaluation Date, Time and Location Date Performed: 01/07/23 Time Performed: 10:55 Patient Location: Day Surgery Unit Vital Signs Most Recent Imported Vital Signs: Most Recent Vital Signs Temp Pulse Resp BP Pulse Ox 36.4 C L 67 18 119/76 95 01/07/23 10:43 01/07/23 10:43 01/07/23 10:43 01/07/23 10:43 01/07/23 10:43 Most Recent Vital Signs Temp Pulse Resp BP Pulse Ox 36.5 C 75 18 120/91 H 98 01/07/23 09:15 01/07/23 09:15 01/07/23 09:15 01/07/23 09:15 01/07/23 09:15 Pain Score Most Recent Pain Score: Most Recent Pain Score Pain Level 0 01/07/23 10:43 Assessment Mental Status: Awake (Alert & Oriented to Patient Baseline) Airway and Respiratory Function: Patent airway with normal (patient baseline) respiratory exam Cardiovascular Function: Hemodynamically Stable Hydration Status: Adequately Hydrated Nausea & Vomiting: No Nausea or Vomiting Pain: Pt. Denies Any Pain Peripheral Nerve Block: Patient did not receive a nerve block
== END 2023-01-07 10:50 | disposition home or self-care (01) ==
PROVIDERS: PCP Nurse Practitioner Family; Visit Provider Surgery
PROC: 0DJD8ZZ Inspection of Lower Intestinal Tract, Via Natural or Artificial Opening Endoscopic (ICD-10-PCS; CPT 45378; principal; 2023-01-07 09:45)
DX: Z12.11 Encounter for screening for malignant neoplasm of colon (principal); K57.30 Diverticulosis of large intestine without perforation or abscess without bleeding; K62.1 Rectal polyp
CPT/HCPCS: 45380; 88305; J2001

== ENCOUNTER 2023-03-21 16:01 | Outpatient (CLI) | payer OTHER, SELFPAY ==
--- NOTE | 2023-03-21 12:45 | DI.RAD_ITS ---
Exam(s) XR KNEE RT 2V AP,LAT EXAM: XR KNEE RT 2V AP,LAT CLINICAL HISTORY: annual f/u R TKA. TECHNIQUE: 2D digital imaging was performed. Two images were obtained. AP and lateral views were ob tained. COMPARISON: CR XR STANDING ALIGNMENT from 04/12/2022 CR XR KNEE RT 1V from 04/12/2022 FINDINGS: BONES: There are stable post operative changes of a right total knee replacement present. No fractur e or dislocation. Enthesophytes are seen at the anterior patella. JOINTS: The orthopedic hardware is in good position. No evidence of hardware loosening. SOFT TISSUE: Normal. IMPRESSION: Stable postoperative changes. DATA REPOSITORY: RADIATION DOSE DELIVERED:
--- NOTE | 2023-03-21 13:00 | DI.RAD_ITS ---
Exam(s) XR HIP LT AP LAT ONLY EXAM: XR HIP LT AP LAT ONLY CLINICAL HISTORY: ANNUAL F/U L MICHELE. TECHNIQUE: 2D digital imaging was performed. Two images were obtained. AP and lateral views were ob tained. COMPARISON: CR XR STANDING ALIGNMENT from 04/12/2022 FINDINGS: BONES: There are stable post operative changes of a left total hip replacement present. No fracture or dislocation. JOINTS: The orthopedic hardware is in good position. No evidence of hardware loosening. SOFT TISSUE: Normal. IMPRESSION: Stable postoperative changes. DATA REPOSITORY: RADIATION DOSE DELIVERED:
== END 2023-03-21 16:02 | disposition home or self-care (01) ==
LOC: DIORS 16:01
PROVIDERS: PCP Nurse Practitioner Family; Visit Provider Student in an Organized Health Care Education/Training Program
DX: Z96.651 Presence of right artificial knee joint (principal); Z96.642 Presence of left artificial hip joint; Z47.1 Aftercare following joint replacement surgery
CPT/HCPCS: 73502; 73560

== ENCOUNTER → 2023-09-28 01:04 | Outpatient (CLI) | payer BC, SELFPAY ==
--- OUTSIDE RECORDS SUMMARY | 2023-09-28 01:06 | XMS_ITS | Continuity of Care Document ---
Author Name Unknown Organization [facility] Address [address] [place] [address] Care Team Providers Care Care Rep Name Role Phone Rosibel Florian Primary Care Physician [phone] Encounter [facility] Date(s): 08/20/22 - 08/20/[address] [id number] Discharge Disposition: Home or Self Care Attending Physician: Rosibel Florian ACCOUNTS PAYABLE PROCESSOR Admitting Physician: Rosibel Florian ACCOUNTS PAYABLE PROCESSOR Referring Physician: Rosibel Florian ACCOUNTS PAYABLE PROCESSOR Allergies, Adverse Reactions, Alerts No Known Medication Allergies Medications !-Zofran ODT 4 mg oral tablet, disintegrating 4 mg = 1 tab, Oral, every 8 hr, PRN as needed for nausea/vomiting, # 12 tab, 0 Refill(s), 08/23/22 12:22:00 EDT, Pharmacy: [id number], 182, cm, 08/10/22 10:13:00 EDT, Height/Length Dosing,98.43, kg, 08/10/22 10:13:00 EDT, Weight Dosing Start Date: 08/10/22 Stop Date: 08/23/22 Status: Ordered Social History Social History Type Response Tobacco Never tobacco user T obacco Use:. Sex Patient Care team information Care Team Personnel Name: Rosibel Florian ACCOUNTS PAYABLE PROCESSOR Position: PowerChart View Only Member Role: Informed Provider Address: Address: [address] [place] [id number]- Care Team Related Persons Name: SUMAN DIXON Address: Home [address] [facility], [id number]
--- OUTSIDE RECORDS SUMMARY | 2023-09-28 01:06 | XMS_ITS | Continuity of Care Document ---
Author Name Unknown Organization [facility] Address [address] [place] [address] Care Team Providers Care Rn Endoscopy Name Role Phone Rosibel Florian Primary Care Physician [phone] Encounter [facility] Date(s): 10/15/22 - 10/15/[address] [phone] [place] Encounter Diagnosis Knee pain(Discharge Diagnosis) - 10/15/22 Discharge Disposition: Home or Self Care Attending Physician: Chanell Bejarano MD Admitting Physician: Chanell Bejarano MD Allergies, Adverse Reactions, Alerts No Known Allergies Assessment and Plan Extracted from: Title:Clinical Document Author:Jasmyn Moran te:10/15/22 Diagnosis: 1. Knee pain Comment: Diagnosis: Knee pain-swelling Comment: Functional Status 10/15/22 Family Member Travel History No recent t ravel Recent Travel History No recent travel Other exposure to Infectious Disease Non e Medications No Known Medications Vital Signs Most recent to oldest [Reference Range]: 1 Temperature Temporal Artery [36-38 Deg C ] 35.9 Deg C *LOW* (10/15/22 8:11 AM) Peripheral Pulse Rate [60-100 bpm] 88 bp m (10/15/22 8:11 AM) Respiratory Rate [12-24 br/min] 18 br/mi n (10/15/22 8:11 AM) Blood Pressure [90-140/60-90 mmHg] 147/8 9mmHg *HI* (10/15/22 8:11 AM) Weight Dosing 98.43 kg (10/15/22 8:17 AM) Weight Estimated 98.43 kg (10/15/22 8:11 AM) Height/Length Dosing 182.000 cm (10/15/22 8:17 AM) Height/Length Estimated 182.000 cm (10/15/22 8:11 AM) Social History Social History Type Response Tobacco Never tobacco user T obacco Use:. Sex Hospital Discharge Instructions Patient Education 10/15/2022 07:53:52 Acute Knee Pain, Adult Acute Knee Pain, Adult Acute knee pain is sudden and may be caused by damage, swelling, or irritation of the muscles and tissues that support the knee. Pain may result from: ??? A fall. ??? An injury to the knee from twisting motions. ??? A hit to the knee. ??? Infection. Acute knee pain may go away on its own with time and rest. If it does not, your health care provider may order tests to find the cause of the pain. These may include: ??? Imaging tests, such as an X-ray, MRI, CT scan, or ultrasound. ??? Joint aspiration. In this test, fluid is removed from the knee and evaluated. ??? Arthroscopy. In this test, a lighted tube is inserted into the knee and an image is projected onto a TV screen. ??? Biopsy. In this test, a sample of tissue is removed from the body and studied under a microscope. Follow these instructions at home: If you have a knee sleeve or brace: ??? Wear the knee sleeve or brace as told by your health care provider. Remove it only as told by your health care provider. ??? Loosen it if your toes tingle, become numb, or turn cold and blue. ??? Keep it clean. ??? If the knee sleeve or brace is not waterproof: ??? Do not let it get wet. ??? Cover it with a watertight covering when you take a bath or shower. Activity ??? Rest your knee. ??? Do not do things that cause pain or make pain worse. ??? Avoid high-impact activities or exercises, such as running, jumping rope, or doing jumping jacks. ??? Work with a physical therapist to make a safe exercise program, as recommended by your health care provider. Do exercises as told by your physical therapist. Managing pain, stiffness, and swelling ??? If directed, put ice on the affected knee. To do this: ??? If you have a removable knee sleeve or brace, remove it as told by your health care provider. ??? Put ice in a plastic bag. ??? Place a towel between your skin and the bag. ??? Leave the ice on for 20 minutes, 2???3 times a day. ??? Remove the ice if your skin turns bright red. This is very important. If you cannot feel pain, heat, or cold, you have a greater risk of damage to the area. ??? If directed, use an elastic bandage to put pressure (compression) on your injured knee. This may control swelling, give support, and help with discomfort. ??? Raise (elevate) your knee above the level of your heart while you are sitting or lying down. ??? Sleep with a pillow under your knee. General instructions ??? Take wvsx-dwy-plmaaqw and prescription medicines only as told by your health care provider. ??? Do not use any products that contain nicotine or tobacco, such as cigarettes, e-cigarettes, andchewing tobacco. If you need help quitting, ask your health care provider. ??? If you are overweight, work with your health care provider and a dietitian to set a weight-lossgoal that is healthy and reasonable for you. Extra weight can put pressure on your knee. ??? Pay attention to any changes in your symptoms. ??? Keep all follow-up visits. This is important. Contact a health care provider if: ??? Your knee pain continues, changes, or gets worse. ??? You have a fever along with knee pain. ??? Your knee feels warm to the touch or is red. ??? Your knee handy or locks up. Get help right away if: ??? Your knee swells, and the swelling becomes worse. ??? You cannot move your knee. ??? You have severe pain in your knee that cannot be managed with pain medicine. Summary ??? Acute knee pain can be caused by a fall, an injury, an infection, or damage, swelling, or irritation of the tissues that support your knee. ??? Your health care provider may perform tests to find out the cause of the pain. ??? Pay attention to any changes in your symptoms. Relieve your pain with rest, medicines, light activity, and the use of ice. ??? Get help right away if your knee swells, you cannot move your knee, or you have severe pain that cannot be managed with medicine. This information is not intended to replace advice given to you by your health care provider. Make sure you discuss any questions you have with your health care provider. Document Revised: 09/03/2020 Document Reviewed: 09/03/2020 [employer] Patient Education ?? 2022 MD [employer]. Follow Up Care 10/15/2022 08:11:24 With:Follow up with primary care provider Address: When:1 to 2 weeks Physician Emergency department Note * Chanell Bejarano MD: PERFORM Event Display: ED Note Physician Authored Date: [id number] ABA DIXON :1965 Age:56 years Sex:Female Visit Date:10/15/2022 Primary Care Physician: Rosibel Florian NP Basic Information Time Seen: Chanell Bejarano MD / 10/15/2022 08:18 Chief Complaint 'My left knee is really hurting, I stepped down on tuesday and it made a popping noise, it feels like there is a catch to it. When I go to move it feels like it needs to click to be able to walk. PT states right knee replacement in March. Ortho called History Of Present Illness: Patient reports on Tuesday she stepped down and her??left knee made a popping noise??she says??she feels like there is a catch to it especially??towards the end of the day. ??No other injury??no trauma. ??Patient also feels like it is swollen. ??No tingling no numbness.?? Patient has had Dr. Osuna??replaced her left hip and right knee.?? Patient called orthopedics and was told??closest appointment being November.?? pt is going on vacation this next week to [place].?? Review of Systems: see hpi for ros Physical Exam Vitals & Measurements T:??35.9?C ??(Temporal Artery)?? HR:??88??(Peripheral)?? RR:??18?? BP:??147/89?? SpO2:??96%?? HT:??182.000??cm?? WT:??98.43??kg??(Estimated)?? Pain Score:??2?? O2 Therapy:??Room air?? General: Alert and oriented, well nourished,?No??acute distress Eye: PER,?Normal??conjunctiva, No scleral icterus HENT: Normocephalic?Normal?? hearing?? Respiratory:??Respiration??no distress??no increased work of breathing Heart:??Capillary refill less than 2 seconds??no??edema Chest: wall excursion wnl no abnormal movements no obvious deformities Musculoskeletal:?Decreased rom of right knee due to pain and effusion, moderate effusion of kneepresent, no ligament laxity there is tenderness on??testing of ACL??dorsalis pedis posterior tibialis is a 2 bilaterally sensation light touch intact bilaterally??there is no foot ankle??tibia-fibula area pain??to palpation Skin: Skin is warm, dry and pink,?No??rashes,?No??lesions Neurologic: Awake, alert and oriented X4 Psychiatric: Cooperative, appropriate mood and affect Medical Decision Making: For MDM please see under assessment and plan Procedure No Qualifying Data Assessment/Plan 1.??Knee pain??M25.569 Knee pain/sprain/arthritis patient??is placed in a knee immobilizer??patient??will take ibuprofen and Tylenol as needed for pain and discomfort she will use an assistive device especially on vacationand try to take it easy. ??She will keep her appointment with Dr. Osuna or follow-up with Dr. Lo. Orders: Discharge Patient, 10/15/22 8:53:00 EDT, Home Independently, Constant Indicator Splint/Brace Application, Once, Knee Immobilizer, Stop date 10/15/22 8:49:00 EDT XR Knee Complete 4+ Views Left, 10/15/22 8:34:00 EDT, Stat, Reason: pain, Transport Mode: Stretcher, Exam to be performed outside organization? Patient Education Acute Knee Pain, Adult Follow Up With When Contact Information Follow up with primary care provider Within 1 to 2 weeks Additional Instructions: Problem List/Past Medical History Ongoing No qualifying data Historical No qualifying data Allergies No Known Allergies No Known Medication Allergies Social History Alcohol Never Electronic Cigarette/Vaping Electronic Cigarette Use: Never. Substance Use Never Tobacco Never tobacco user Tobacco Use:. Electronically Signed on 10/15/22 09:05 AM Chanell Bejarano MD Emergency department Discharge instructions * Chanell Bejarano MD: PERFORM Event Display: ED Discharge Information Authored Date: [id number] ABA DIXON :1965 Age:56 years Sex:Female Visit Date:10/15/2022 Primary Care Physician: Rosibel Florian TEST DESK SUPERVISOR Discharge Instructions We would like to thank you for allowing us to assist you with your healthcare needs. The following includes patient education materials and information regarding your injury/illness. Diagnosis from Today's Visit Knee pain Discharge Vitals Temperature??(Temporal Artery) 96.6 ??F (35.9 ??C) Heart Rate??(Peripheral) 88 Respiratory Rate?? 18 Blood Pressure?? 147/89?? Height?? 71.65 in (182.000 cm) Weight??(Estimated) 217.04 lb (98.43 kg) Allergies No Known Allergies No Known Medication Allergies What to Do Next Instructions from Your Care Team Keep your appointment with Dr. Osuna or call Dr. Lo [phone]. You may take up to 800 mg of Motrin, Advil??(ibuprofen)??every 8 hours as needed for pain or discomfort??and or??up to??1000 mg??of Tylenol??(acetaminophen) every 6 hours as needed??for pain or discomfort for maximum 4000 mg in 24 hours or you may permanently hurt your liver. You Need to Schedule the Following Appointments Follow Up with??Follow up with primary care provider When:??Within 1 to 2 weeks You were treated today on an emergency basis; it may be caro to contact your primary care provider to notify them of your visit today. You may have been referred to your regular doctor or a specialist, please follow up as instructed. If your condition worsens or you can't get in to see the doctor, contact the Emergency Department. Education Materials Acute Knee Pain, Adult Acute knee pain is sudden and may be caused by damage, swelling, or irritation of the muscles and tissues that support the knee. Pain may result from: ? A fall. ? An injury to the knee from twisting motions. ? A hit to the knee. ? Infection. Acute knee pain may go away on its own with time and rest. If it does not, your health care provider may order tests to find the cause of the pain. These may include: ? Imaging tests, such as an X-ray, MRI, CT scan, or ultrasound. ? Joint aspiration. In this test, fluid is removed from the knee and evaluated. ? Arthroscopy. In this test, a lighted tube is inserted into the knee and an image is projected onto a TV screen. ? Biopsy. In this test, a sample of tissue is removed from the body and studied under a microscope. Follow these instructions at home: If you have a knee sleeve or brace: ? Wear the knee sleeve or brace as told by your health care provider. Remove it only as told by your health care provider. ? Loosen it if your toes tingle, become numb, or turn cold and blue. ? Keep it clean. ? If the knee sleeve or brace is not waterproof: ? Do not let it get wet. ? Cover it with a watertight covering when you take a bath or shower. Activity ? Rest your knee. ? Do not do things that cause pain or make pain worse. ? Avoid high-impact activities or exercises, such as running, jumping rope, or doing jumping jacks. ? Work with a physical therapist to make a safe exercise program, as recommended by your health care provider. Do exercises as told by your physical therapist. Managing pain, stiffness, and swelling ? If directed, put ice on the affected knee. To do this: ? If you have a removable knee sleeve or brace, remove it as told by your health care provider. ? Put ice in a plastic bag. ? Place a towel between your skin and the bag. ? Leave the ice on for 20 minutes, 2???3 times a day. ? Remove the ice if your skin turns bright red. This is very important. If you cannot feel pain, heat, or cold, you have a greater risk of damage to the area. ? If directed, use an elastic bandage to put pressure (compression) on your injured knee. This may control swelling, give support, and help with discomfort. ? Raise (elevate) your knee above the level of your heart while you are sitting or lying down. ? Sleep with a pillow under your knee. General instructions ? Take asxz-jsk-uphylkg and prescription medicines only as told by your health care provider. ? Do not use any products that contain nicotine or tobacco, such as cigarettes, e- cigarettes, and chewing tobacco. If you need help quitting, ask your health care provider. ? If you are overweight, work with your health care provider and a dietitian to set a weight-loss goal that is healthy and reasonable for you. Extra weight can put pressure on your knee. ? Pay attention to any changes in your symptoms. ? Keep all follow-up visits. This is important. Contact a health care provider if: ? Your knee pain continues, changes, or gets worse. ? You have a fever along with knee pain. ? Your knee feels warm to the touch or is red. ? Your knee handy or locks up. Get help right away if: ? Your knee swells, and the swelling becomes worse. ? You cannot move your knee. ? You have severe pain in your knee that cannot be managed with pain medicine. Summary ? Acute knee pain can be caused by a fall, an injury, an infection, or damage, swelling, or irritation of the tissues that support your knee. ? Your health care provider may perform tests to find out the cause of the pain. ? Pay attention to any changes in your symptoms. Relieve your pain with rest, medicines, light activity, and the use of ice. ? Get help right away if your knee swells, you cannot move your knee, or you have severe pain that cannot be managed with medicine. This information is not intended to replace advice given to you by your health care provider. Make sure you discuss any questions you have with your health care provider. Document Revised: 09/03/2020 Document Reviewed: 09/03/2020 [employer] Patient Education ?? 2022 [employer] Patient/Otr Flatbed Driver Signature Patient Name:ABA DIXON I have received this information and my questions have been answered. Patient/Otr Flatbed Driver Name: Patient/Otr Flatbed Driver Signature: Relationship to Patient: Witness Name/Signature: Date: Electronically Signed on: 10/15/2022 08:54 EDTSigned by:AMS Discharge summary * Jasmyn Moran: PERFORM Event Display: Discharge Note Authored Date: * Jasmyn Moran: PERFORM Event Display: Discharge Note Authored Date: Diagnosis: 1. Knee pain Comment: Diagnosis: Knee pain-swelling Comment: Electronically Signed on 10/15/22 09:15 AM Jasmyn Moran Patient Care team information Care Team Personnel Name: Rosibel Florian TEST DESK SUPERVISOR Position: PowerChart View Only Member Role: Informed Provider Address: Address: [address] Name: Shanti Saeed RN Position: Nurse Member Role: ED Nurse Name: Chanell Bejarano MD Position: Physician Member Role: ED Physician Address: Address: [address] [place] [address] Care Team Related Persons Name: SUMAN DIXON Address: Home [address] [place] [phone]
--- NOTE | 2023-09-28 12:20 | DI.MAMMO_ITS ---
Exam(s) MAMMO SCREENING EXAM: MAMMO SCREENING CLINICAL HISTORY: Adult health examination, Z00.00,screening TECHNIQUE: Mammograms were interpreted according to the usual protocol including computer analysis w [employer] CAD system, tomosynthesis and C-view imaging. COMPARISON: 2015 and 2022 FINDINGS: The breasts are composed of mainly fatty density , Breast Density category A. No suspicious masses or suspicious microcalcifications are seen. Nodule in the central left breast i s stable in size from 2016. No skin thickening or abnormal axillary lymph nodes are seen. There has been no significant change from prior exams. IMPRESSION: BI-RADS Category 2 - Negative Mammogram with benign findings. Yearly screening mammography is recomm ended. . Breast Density - Category A, fatty density. A negative radiographic report should not delay biopsy if a dominant or clinically suspicious mass is present. Up to ten percent of cancers are not identified on mammography. A negative report may reinforce clinical impression. Adenosis and dense breasts may obscure an underlying neoplasm. False positive reports average 6 to 10%. Patient will receive a letter notifying them of these results.
== END ==
PROVIDERS: PCP Nurse Practitioner Family; Visit Provider Nurse Practitioner Family
DX: Z00.00 Encounter for general adult medical examination without abnormal findings (principal); Z12.39 Encounter for other screening for malignant neoplasm of breast
CPT/HCPCS: 77063; 77067

== ENCOUNTER 2024-08-20 15:33 | Outpatient (CLI) | payer OTHER, SELFPAY ==
--- NOTE | 2024-08-20 14:30 | DI.RAD_ITS ---
Exam(s) XR STANDING ALIGNMENT EXAM: XR STANDING ALIGNMENT CLINICAL HISTORY: eval L knee alignment. TECHNIQUE: 2D digital imaging was performed. Four images were obtained. COMPARISON: CR XR KNEE RT 1V from 04/12/2022 CR XR STANDING ALIGNMENT from 04/12/2022 CR XR KNEE LT 3V AP,LAT,VIET from 11/19/2022 CR XR KNEE RT 2V AP,LAT from 03/21/2023 CR XR HIP LT AP LAT ONLY from 03/21/2023 CR XR KNEE LT 3V AP,LAT,VIET from 08/20/2024 FINDINGS: BONES: There are stable postsurgical changes of a left total hip arthroplasty. The right hip is well maintained. There are stable postsurgical changes of a right total knee arthroplasty. No evidence of loosening. In the left knee, there are marked degenerative changes present. There is bone-on-bon e seen in the lateral femoral tibial joint. Osteophytes are seen medially and laterally. There is a genu valgus deformity of both knees, left greater than right. The ankles are well maintained.There is no significant leg length discrepancy. SOFT TISSUE: Normal. IMPRESSION: Marked degenerative changes seen in the left knee. DATA REPOSITORY: RADIATION DOSE DELIVERED:
--- NOTE | 2024-08-20 14:30 | DI.RAD_ITS ---
Exam(s) XR KNEE LT 3V AP,LAT,VIET EXAM: XR KNEE LT 3V AP,LAT,VIET CLINICAL HISTORY: eval L knee OA. TECHNIQUE: 2D digital imaging was performed. Three views. COMPARISON: CR XR KNEE LT 3V AP,LAT,VIET from 11/19/2022 CR XR KNEE RT 2V AP,LAT from 03/21/2023 FINDINGS: BONES: No acute fracture is present. No bony destructive lesion is seen. Spurring at the tibial sp sis and femoral intercondylar notch. JOINTS: Severe narrowing of the lateral femoral tibial joint space, with a jiwm-ii-sfgy appearance. Periarticular spurring is noted throughout. Patellofemoral joint and medial femoral tibial joint spa cing maintained. No joint effusion is seen. SOFT TISSUE: Normal. IMPRESSION: Severe degenerative changes of the lateral femoral tibial joint. DATA REPOSITORY: RADIATION DOSE DELIVERED:
== END 2024-08-20 15:34 | disposition home or self-care (01) ==
LOC: DIORS 15:34
PROVIDERS: PCP Nurse Practitioner Family; Referring Provider Nurse Practitioner Family; Visit Provider Student in an Organized Health Care Education/Training Program
DX: M17.12 Unilateral primary osteoarthritis, left knee (principal)
CPT/HCPCS: 73562; 77073

== ENCOUNTER 2024-11-20 17:52 | Outpatient (REF) | payer OTHER, SELFPAY ==
[2024-11-20 20:23] LABS: ALT 24 U/L (14-59); AST 16 U/L (15-37); Albumin 3.5 g/dL (3.4-5.0); Alkaline Phosphatase 104 U/L (46-116); Anion Gap 10.6 mmol/L (3-11); BUN 19 mg/dL (7-18); Bilirubin, Total 0.2 mg/dL (0.2-1.0); CO2 25.4 mmol/L (21.0-32.0); Calcium 9.2 mg/dL (8.5-10.1); Chloride 105 mmol/L (98-107); Estimated GFR 52.14 (mL/min/1.73m2); Glucose 130 mg/dL (74-106); Potassium 4.5 mmol/L (3.5-5.1); Sodium 141 mmol/L (136-145); Total Protein 7.3 g/dL (6.4-8.2)
== END 2024-11-20 17:53 | disposition home or self-care (01) ==
LOC: NCHCN 17:52
PROVIDERS: PCP Nurse Practitioner Family; Visit Provider Nurse Practitioner Family
DX: Z01.818 Encounter for other preprocedural examination (principal)
CPT/HCPCS: 80053

== ENCOUNTER 2024-12-10 19:03 | Outpatient (REF) | payer OTHER, SELFPAY ==
[2024-12-10 15:57] LABS: HCT 43.3 % (36.0-46.0); HGB 13.9 g/dL (11.2-15.7); MCH 27.4 pg (27.0-33.0); MCHC 32.1 % (32.0-36.0); MCV 85 fL (80-95); MPV 11.3 fL (8.0-11.0); Platelet Count 248 10^3/uL (130-400); RBC 5.08 10^6/uL (3.93-5.22); RDW 14.2 % (11.7-14.6); RDW-SD 43.8 fL; WBC 8.50 10^3/uL (4.4-10.8)
[2024-12-10 16:24] LABS: Anion Gap 10.3 mmol/L (3-11); BUN 13 mg/dL (7-18); CO2 25.7 mmol/L (21.0-32.0); Calcium 9.4 mg/dL (8.5-10.1); Chloride 105 mmol/L (98-107); Estimated GFR 64.90 (mL/min/1.73m2); Glucose 94 mg/dL (74-106); Potassium 4.5 mmol/L (3.5-5.1); Sodium 141 mmol/L (136-145)
== END 2024-12-10 19:04 | disposition home or self-care (01) ==
LOC: LBN 19:03
PROVIDERS: PCP Nurse Practitioner Family; Visit Provider Student in an Organized Health Care Education/Training Program
DX: M17.12 Unilateral primary osteoarthritis, left knee (principal); Z01.818 Encounter for other preprocedural examination
CPT/HCPCS: 80048; 85027

== ENCOUNTER 2024-12-25 07:04 | Day surgery (SDC) | payer OTHER, SELFPAY ==
[2024-12-25] VITALS (23 sets, daily range): BP systolic 88–164; BP diastolic 51–95; PULSE 68–89; RESP 13–25; TEMP 36.1–37.1; O2SAT 89–97; BMI 31.4
--- NOTE | 2024-12-25 07:12 | PDOC.DSDIS_ITS ---
Date of service: 12/25/24 Discharge Plan Disposition Patient Disposition: Home Condition: Good Discharge Details Reason For Visit: Left knee DJD Attending Provider: Rah Osuna Primary Care Provider: Rosibel Florian Home Meds and New Rx's Prescriptions: New celecoxib [Celebrex] 200 mg capsule 200 mg PO BID PRNQty: 60 0RF Rx Instructions: Take one tablet twice daily for pain and inflammation aspirin 81 mg tablet,delayed release (DR/EC) 81 mg PO BID 30 Days Qty: 60 0RF acetaminophen 500 mg tablet 1,000 mg PO Q8H PRN Qty: 90 0RF Rx Instructions: Take two tablets up to every 8 hours as needed for pain pantoprazole 40 mg tablet,delayed release (DR/EC) 40 mg PO DAILY Qty: 14 0RF Rx Instructions: Take one tablet once daily dexamethasone 4 mg tablet 4 mg PO DAILY Qty: 2 0RF Rx Instructions: Take one tablet once daily for two days docusate sodium [Colace] 100 mg capsule 100 mg PO BID Qty: 28 0RF gabapentin 300 mg capsule 300 mg PO QHS Qty: 14 0RF Rx Instructions: Take one tablet at bedtime oxycodone 5 mg tablet 5 mg PO Q4H PRNQty: 18 0RF Rx Instructions: Take one tablet up to every 4 hours as needed for severe postoperative pain Continued epinephrine [EpiPen] 0.3 mg/0.3 mL auto-injector 0.3 mg IM ONCE Rx Instructions: as a single dose; may repeat once Discharge Instructions Additional Instructions: Total Knee Discharge Instructions Activity: The most important activity is to walk and to work on gentle motion (both flexion and extension). You should try to take short walks a few times a day. It is important that when resting you work on keeping the knee straight. Avoid putting a pillow behind the knee as this will encourage flexion. Work on range of motion exercises as provided by Physical Therapy. - Start outpatient physical therapy within 2 weeks. - You should wear the SAMM hose on both legs for 2 weeks. You may remove these at night. You may also use any compression sock in place of the SAMM hose. - Utilize [employer] to review exercises, see videos on exercises and obtain basic information pertaining to your surgery and your recovery. Dressing: Remove the Be wrap by 2 days after your surgery and put on the SAMM stocking given to you from the hospital. Keep the surgical dressing (underneath the BE wrap) in place for at least one week. After the first week it may be removed and replaced with light gauze and tape or nothing. The wound and dressing may get wet after 3 days but avoid soaking the dressing or otherwise it will need to be changed. Many people prefer covering the dressing with cling wrap (saran wrap) to minimize it from getting soaked. If it gets wet, just pat dry. If it starts to peel off then it will need to be changed. Medications: - You should take Tylenol and anti-inflammatory Celebrex as your primary pain control medications. If the Celebrex is too expensive or not covered, please call the office for another alternative (Advil/Ibuprofen or Naproxen/Aleve) - You have been prescribed a stronger pain medication Oxycodone for breakthrough pain, take as needed as prescribed. - You have also been prescribed a stomach acid reduction agent Pantoprozole to help reduce stomach acid and reflux. - You have been prescribed Gabapentin to take at night for restlessness and nerve pain. - You will be taking Aspirin 81mg twice a day for DVT prevention unless instructed otherwise. - You have also been prescribed Decadron to take to control post-operative nausea and pain. You will start this tomorrow. - If you have constipation you should take Colace (which has been prescribed) or Miralax (which is available [id number]). It takes most people 3-4 days to have a bowel movement. Follow-up: 2 weeks If you have any acute concerns or questions, please do not hesitate to contact the office at [phone]. You may contact Dr. Osuna with any questions after hours through the hospital at [phone] or on his cell phone at [phone]. Stand Alone Forms: Anesthesia Discharge Inst., Oanh [place] ([facility]) Referrals: Rah Osuna MD [ [facility] STAFF PHYSICIAN, Orthopaedic Surgical] Equipment/Supplies: Walker Activity:: Elevate Remove Dressings/Wound Care:: Do Not Remove Shower/Bathe:: Cover Diet:: As Tolerated Discharge Orders Discharge Orders: Discharge Order (Routine); Ordered 12/25/24 Ordered By: Linnette Martínez
[2024-12-25] MEDS: Lactated Ringers 1,000 ML 80 ML IV (07:48)
[2024-12-25] MEDS: Celecoxib 200 MG CAP 400 MG PO (07:48)
[2024-12-25] MEDS: Gabapentin 300 MG CAP PO (07:48)
[2024-12-25] MEDS: Acetaminophen 500 MG TAB 1000 MG PO (07:48)
--- NOTE | 2024-12-25 07:56 | W.ANESPRE ---
General Info Date of Service Date Performed: 12/25/24 Height: 6 ft Weight: 104.9 kg Body Mass Index (BMI): 31.4 Surgical Procedure: Operation Date: 12/25/24 09:40 Proposed Procedure Side Surgeon p Knee Total Arthroplasty w/OrthAlign Left Rah Osuna MD Meds Allergies and Home Medications Allergies Allergy/AdvReac Type Severity Reaction Status Date / Time guava Allergy Severe Anaphylaxis Verified 12/25/24 07:14 strawberry Allergy Severe Anaphylaxis Verified 12/25/24 07:14 tomato Allergy Severe Anaphylaxis Verified 12/25/24 07:14 Home Medication ?Medication ?Instructions ?Recorded epinephrine 0.3 mg/0.3 mL 0.3 mg IM ONCE 09/21/22 injection, auto-injector (EpiPen) acetaminophen 500 mg tablet 1,000 mg (2 x 500 mg) PO Q8H PRN 12/25/24 pain #90 tabs aspirin 81 mg tablet,delayed 81 mg PO BID 30 days #60 tabs 12/25/24 release celecoxib 200 mg capsule (Celebrex) 200 mg PO BID PRN #60 caps 12/25/24 dexamethasone 4 mg tablet 4 mg PO DAILY #2 tabs 12/25/24 docusate sodium 100 mg capsule 100 mg PO BID #28 caps 12/25/24 (Colace) gabapentin 300 mg capsule 300 mg PO QHS #14 caps 12/25/24 oxycodone 5 mg tablet 5 mg PO Q4H PRN #18 tabs 12/25/24 pantoprazole 40 mg tablet,delayed 40 mg PO DAILY #14 tabs 12/25/24 release Current Visit Medications: Current Medications Generic Name Dose Route Start Last Admin Trade Name Tristinq PRN Reason Stop Dose Admin Acetaminophen 1,000 mg 12/25/24 06:00 12/25/24 07:48 Acetaminophen 500 Mg Tab PO 12/25/24 23:59 1,000 mg PREOP MARLENY Administration Celecoxib 400 mg 12/25/24 06:00 12/25/24 07:48 Celecoxib 200 Mg Cap PO 12/25/24 23:59 400 mg PREOP MARLENY Administration Droperidol 0.625 mg 12/25/24 07:31 Droperidol 5 Mg/2 Ml Vial IVP 01/24/25 07:30 DIRECTED PRN Ephedrine Sulfate 0 mg 12/25/24 07:31 Ephedrine 25 Mg/5 Ml Syringe IVP 01/24/25 07:30 DIRECTED PRN Fentanyl 0 mcg 12/25/24 07:31 Fentanyl 100 Mcg/2 Ml Vial IVP 01/24/25 07:30 DIRECTED PRN Gabapentin 300 mg 12/25/24 06:00 12/25/24 07:48 Gabapentin 300 Mg Cap PO 12/25/24 23:59 300 mg PREOP MARLENY Administration Hydromorphone HCl 0.5 mg 12/25/24 07:09 Hydromorphone 2 Mg/Ml Syr IVP 01/24/25 07:08 Q2H PRN PRN Hydromorphone HCl 0 mg 12/25/24 07:31 Hydromorphone 2 Mg/Ml Syr IVP 01/24/25 07:30 DIRECTED PRN Ringer's Solution 1,000 mls @ 80 mls/hr 12/25/24 06:00 12/25/24 07:48 IV 12/25/24 23:59 80 mls/hr INFUSION MARLENY Administration Cefazolin Sodium/Dextrose 2 gm in 50 mls @ 100 mls/hr 12/25/24 06:00 Ancef Duplex IVPB 12/25/24 23:59 PREOP MARLENY Tranexamic Acid/Sodium Chloride 1,000 mg in 100 mls @ 600 mls/hr 12/25/24 06:00 IVPB 12/25/24 23:59 PREOP MARLENY Cefazolin Sodium/Dextrose 1 gm in 50 mls @ 100 mls/hr 12/25/24 08:00 Ancef Duplex IVPB 12/26/24 00:29 Q8H MARLENY IV Miscellaneous Supplies 1 each 12/25/24 06:00 Iv Access IV 12/25/24 23:59 DIRECTED MARLENY Naloxone HCl 0 mg 12/25/24 07:31 Naloxone 0.4 Mg/Ml Vial IVP 01/24/25 07:30 PRN PRN Oxycodone HCl 0 mg 12/25/24 07:09 Oxycodone 5 Mg Tab PO 01/24/25 07:08 Q3H PRN PRN Pain Sodium Chloride 0 ml 12/25/24 06:00 Normal Saline Flush 10 Ml Syr IV 12/25/24 23:59 PRN PRN Sodium Chloride 0 ml 12/25/24 06:00 Normal Saline 10 Ml Vial IJ 12/25/24 23:59 DIRECTED PRN Sterile Water 0 ml 12/25/24 06:00 Water,Injection,Sterile 10 Ml Vial IJ 12/25/24 23:59 DIRECTED PRN Tranexamic Acid 1,300 mg 12/25/24 07:09 Tranexamic Acid 650 Mg Tab PO 01/24/25 07:08 ONCE PRN postoperative PFSH Active Problems Active Problems: Problem Status Onset Code Unilateral primary osteoarthritis, left knee Acute M17.12 Hyperplastic colon polyp Acute K63.5 Diverticula of colon Acute K57.30 Screening for malignant neoplasm of colon performed Acute Z12.11 Left acoustic neuroma Acute D33.3 Dizziness Acute R42 Asymmetrical sensorineural hearing loss Acute H90.3 Left knee DJD Acute M17.12 Asthma Chronic J45.909 Anemia Chronic D64.9 Medical History Medical History Primary osteoarthritis of first carpometacarpal joint Kidney stones Joint pain Osteoarthritis AC (acromioclavicular) arthritis Decreased hearing of left ear History of asthma History of kidney stones Surgical History Surgical History 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 History of colonoscopy (~01/2023) History of total right knee replacement (03/30/22) History of total left hip arthroplasty (02/17/22) History of appendectomy History of tonsillectomy Tobacco Smoking/Tobacco Use Status: Never Alcohol Alcohol Intake: current Alcohol intake frequency: a few times a week Alcohol type: hard liquor Substance Use Substance use: Never Substance use type: does not use Vital Signs and Lab Results Vital Signs Most Recent Vital Signs in EMR: Most Recent Vital Signs Temp Pulse Resp BP Pulse Ox 36.3 C L 78 20 125/80 97 12/25/24 07:16 12/25/24 07:16 12/25/24 07:16 12/25/24 07:16 12/25/24 07:16 Lab Results Complete Blood Count: WBC, (4.4-10.8) 8.50 10^3/uL 12/10/24, 11:20 RBC, (3.93-5.22) 5.08 10^6/uL 12/10/24, 11:20 Hgb, (11.2-15.7) 13.9 g/dL 12/10/24, 11:20 Hct, (36.0-46.0) 43.3 % 12/10/24, 11:20 Plt Count, (130-400) 248 10^3/uL 12/10/24, 11:20 Complete Metabolic Panel: Sodium, (136-145) 141 mmol/L 12/10/24, 11:20 Potassium, (3.5-5.1) 4.5 mmol/L 12/10/24, 11:20 Chloride, (98-107) 105 mmol/L 12/10/24, 11:20 Carbon Dioxide, (21.0-32.0) 25.7 mmol/L 12/10/24, 11:20 BUN, (7-18) 13 mg/dL 12/10/24, 11:20 Creatinine, (0.55-1.02) 1.0 mg/dL 12/10/24, 11:20 Est GFR (CKD-EPI 2020), (mL/min/1.73m2) 64.90 12/10/24, 11:20 Calcium, (8.5-10.1) 9.4 mg/dL 12/10/24, 11:20 Glucose, (74-106) 94 mg/dL 12/10/24, 11:20 Anesthesia Assessment and Plan Anesthesia History Personal History: No History of Anesthesia Complications and PONV Family History: No Family History of Anesthesia Complications Exercise Tolerance Exercise Tolerance: Metabolic Equivalents>4 Pertinent Negatives Pertinent Negatives: No Symptoms of GERD Cardiac & Pulmonary Exam Cardiac Exam: Normal S1/S2 Heart Sounds Pulmonary Exam: Clear Bilateral Breath Sounds Implantable Cardiac Device Does patient have a Pacemaker or an ICD?: No Airway Exam Known Difficult Airway: No Mallampati Class: 1 Mouth Opening: Normal (> 3cm) Thyromental Distance: Greater than 3 cm Neck Range of Motion: Full ROM Neck Circumference: Normal Teeth Condition: Normal Dentition ASA Classification ASA Score: ASA 2 Emergency Case?: No NPO Status NPO Status: NPO Clears >2 hours, Solids >8 hours Anesthesia Plan Resuscitation Status: Full Code Anesthesia Technique: Spinal Anesthesia Airway Planned: Natural Airway Pain Management: Surgeon and patient request nerve block Monitors Used: Standard Monitors
--- NOTE | 2024-12-25 08:30 | W.ANESNERVE ---
Nerve Block Single Injection Procedure Date and Time Date Performed: 12/25/24 Procedure Start: 08:22 Location Where Procedure Performed Procedure Location: Day Surgery Unit Reason Performed: Postoperative Analgesia Requesting Provider: Rah Osuna Timeout Performed Timeout Performed: Yes Monitoring Used ECG, Blood Pressure, SpO2 and See EMR for corresponding vital signs Sterility Sterility: Hand Hygiene, Surgical Cap, Surgical Mask, Sterile Gloves, Eye Protection and Chlorhexidine Sedation Given During Procedure Sedation Given (Indicate Dose Given): Versed IV Dose:: 2mg IVP Patient Mental Status Patient Mental Status: Sedate with meaningful communication Nerve Block 1st Nerve Block: Laterality: Left Block Type: Adductor Canal Ultrasound Image Saved?: Yes Needle / Catheter Used: 100mm SonoPlex II Local Anesthetic Bolus (Indicate Dose Given): Lidocaine used for local infiltration of skin, Injected in 3-5ml increments after negative blood aspiration, Bupivacaine 0.5% Dose:: 0.5%/10cc (50mg) and Exparel Dose:: 1.3%/10cc (133mg) Additives (Indicate Dose Given): Epinephrine to make 1:200,000 (5mcg/ml) Dose:: 5mcg/cc (50mcg) Ultrasound: Sterile probe cover and gel used Nerve Stimulator: Not Used Paresthesia: None Procedure Tolerated: No Complications and Patient tolerated well Procedure Outcome: Successful Procedure Comment: 5cc/0.5% bupivacaine added to genicular nerve Performed By: Loki Clay
--- NOTE | 2024-12-25 08:46 | W.PM.OP ---
Operative Note Operative Note PRE-OP DIAGNOSIS: Left Knee Osteoarthritis with Valgus Deformity POST-OP DIAGNOSIS: same PROCEDURE: Left Total Knee Replacement with Intraoperative Navigation SURGEON: Rah Osuna AUDIT CONTROL CLERK: Linnette Martínez ANESTHESIA TYPE: Spinal Refer to Anesthesia Record ESTIMATED BLOOD LOSS: 50 PATHOLOGY: none sent TOURNIQUET TIME: 0 COMPLICATIONS: None Patient was transported to: PACU Patient's condition: stable Implants: 1. Depuy Attune Cementless Cruciate Retaining Femoral Component, Size 7 2. Depuy Attune Cementless Fixed Bearing Tibial Component, Size 6 3. Depuy Attune 7x5mm CR/FB Poly Indications: I have seen Nedra in clinic for symptoms of LEFT knee arthritis with valgus deformity, confirmed with radiographic findings. She has exhausted nonoperative methods and was having significant limitations in daily function and desired better function and less pain. I discussed the technical details of a knee replacement. I explained the risks of the procedure to include, but not limited to, bleeding, infection, pain, stiffness, fracture, damage to nerves and vessels, damage to muscles and tendons, loosening, need for repeat procedure, blood clot and cardiopulmonary demise. Despite these risks, Nedra elected to proceed. Findings: There was significant signs of arthritis throughout the knee. Procedure Description: Nedra was greeted in the preoperative holding area where the correct side was identified and marked. The consent was reviewed with the patient and signed. The history and physical was updated. All questions were answered. Preoperative mediacations were administered: Acetaminophen 1000mg, Celebrex 400mg, and Gabapentin 300mg. An adductor canal block was then administered by the anesthesia team in the DSU. She was taken back to the operating room. A spinal anesthestic was then administered. The patient was placed into the supine position on the operating room table. Posts were placed for positioning during the procedure. All bony prominences were well padded. Prophylactic antibiotics in the form of Cefazolin were administered. 1g of Tranxemic Acid was given intravenously within 30 minutes of incision. The left leg was then prepped with Chloraprep and draped in a standard fashion with impervious stockinette. A second prep with Chloraprep was performed prior to application of Iodine impregnated skin protection. A timeout to confirm correct identity, side and site, procedure, allergies, anesthesia, and medical concerns was performed. With the knee in some flexion, a midline incision was made overlying the knee. Full thickness skin flaps were raised once the extensor mechanism was encountered. These were raised medially and laterally. Any bleeding was controlled with electrocautery. Once the extensor mechanism was fully exposed, a medial parapatellar arthrotomy was performed in a flexed position. All bleeding from the arthrotomy and the geniculate arteries was coagulated. A medial subperiosteal peel was performed with electrocautery to the midcoronal plane. The fat pad was removed while keeping the patellar tendon protected. The anterior distal femur synovium was removed for later visualization. The ACL and PCL were resected and the anterior horn of the lateral meniscus was transected. The knee was then flexed with the patella everted. Large osteophytes from the tibia were removed. Large osteophytes from the femur were removed. A single starting pin was then placed 1cm anterior to the PCL insertion and the notch in the direction of the femoral head. The OrthoAlign device was applied over the pin. It was oriented to be in line with the epicondylar axis and the trochlear groove. It was then pinned into place. The navigation computer was then turned on and calibrated. The distal femur cut was set at 0.5 degrees valgus and 3 degrees flexion. The distal femur cutting guide then was positioned for a 9mm cut. The distal femur was cut with an oscillating saw while protecting the soft tissues. The tibia was then addressed. The OrthoAlign device was placed over the tibial tubercle and medial tibia and secured into position. Once again, OrthoAlign was calibrated and then set for a 1.5 degree varus cut and 5 degrees of posterior slope. With this locked into position, the cut thickness stylus was used to assess cut thickness. The lateral side, most involved side, was set for a 4mm cut, which corresponded to 8mm medially. This was then held in position and pinned into place with 2 additional pins and a cross pin for stability. The medial and lateral collateral ligaments were protected and the cut was performed. With this completed, it was assessed and noted to be of appropriate dimensions. The guide and OrthoAlign was removed. A spacer block was inserted and the knee was brought into extension to ensure enough space was present. . The Orthoalign gap balancing device was then placed in extension. This was used to ensure that the ligaments were properly balanced with up to 2 to 3 mm laxity laterally compared medially. The extension gap was measured as 16mm. The knee was then brought into 90 degrees of flexion and the ligament golf club head inspector was once again placed. Under the same amount of force the flexion gap was measured. The Attune specific jig was placed and the flexion gap was made to match the extension gap. The femur was then sized as a size 7. The 4-in-1 cutting guide was the placed. An natasha wing was used to confirm appropriate position of the anterior cut to avoid notching. This cutting guide was ensured to be flush on the cut surface and then pinned into place with headed pins. While protecting the soft tissues, quad tendon, and collateral ligaments, the anterior and posterior cuts were performed with a saw. The central two pins were removed and the posterior and anterior chamfers were cut next. The notch-cutting guide was placed. This was pinned to lateralize the femoral component as much as possible while keeping it flush on the cut surface. This was then pinned into position. A saw was used to make the notch cut. A rasp smoothed the cut surfaces. The medial and lateral menisci were removed. A trial femoral component was then inserted, impacted down to the cut surfaces, and the lug holes were drilled. A provisional trial tibial component was placed and the knee was brought through range of motion. There was noted to be excellent extension and flexion. There was no significant instability. The patella was tracking without thumbs. A size 5mm polyethylene component provided the best range of motion and stability with less than 2mm gapping with medial and lateral stress and full extension without significant hyperextension. The tibial cut surface was fully exposed. The tibia was then sized as a 6. The tibia had been previously marked during trialing to correspond to the center of the tibial component to help with rotation. The trial was aligned to this phuong, approximately rotated to the medial 1/3rd of the tibial tubercle. The trial was pinned into place. The tibia was prepared with a reamer and a keel punch and lug holes. The trial components were removed. The final components were opened on the back table. The periosteal and capsular tissues, especially posteriorly, around the knee were then systematically injected with a periarticular cocktail consisting of 246mg of Ropivacaine, 0.5mg of Epinephrine, 0.08mg of Clonidine, and 30mg of Ketorolac, diluted to 100cc. Then, the knee components were placed. Starting with the tibial component, the tibia was subluxed anteriorly and the lug holes of the component were lined up. The tibia was then impacted with an impactor and mallet until the tibial component was in contact with the tibia. Then, the femoral component was inserted. The lug holes were aligned and the component was impacted into position. The final polyethylene component was inserted. The knee was irrigated with Surgiphor Betadine solution. This was allowed to sit in the knee for 3 minutes and then it was thoroughly irrigated out with saline. The knee was then taken through range of motion. The patella was tracking with a no-thumbs technique. A complete synovectomy of the patella was performed. Any prominence to the lateral facet was resected with a rongeur. The capsule was then reapproximated with a No. 1 Vicryl at multiple locations. The capsule was finally closed with a No. 2 Stratafix, barbed suture. Deep tissues were then reapproximated with 0 Vicryl and 2-0 Vicryl. The skin was closed with a running 3-0 Monocryl in a subcuticular fashion. This was reinforced with skin glue. A Mepilex silver dressing was applied along with a [id number] EVA wrap. A CryoCuff was applied. Nedra was transferred to the hospital bed without difficulty an suffering no apparent complication. She has a good prognosis. Physical therapy will start today and without restrictions, weight-bearing as tolerated. Aspirin 81mg BID will be used for DVT prophylaxis. Date of Procedure: 12/25/24
[2024-12-25] MEDS: ceFAZolin 2 GM/50 ML BAG IVPB (08:54)
[2024-12-25] MEDS: TRANEXAMIC ACID/SOD. CHL. 1,000 MG/100 ML BAG 600 MG IVPB (08:59)
[2024-12-25] MEDS: Tranexamic Acid 650 MG TAB 1300 MG PO (11:31)
--- NOTE | 2024-12-25 13:08 | IN_ITS ---
PT Notes Visit Reasons: Left knee DJD Physical Therapy Day Surgery Initial Evaluation Date: 12/25/2024 Referring Doctor:Linnette Martínez NP/Dr. Osuna PT Orders: PT CONSULT: Status post Ortho surgery Precautions: WBAT left LE, fall risk due to vestibular deficits Patient Profile/Admitting Diagnosis: Nedra is a 59-year-old female presenting status post elective left TKA under spinal anesthesia by Dr. Osuna on 12/25/2024. Postop uncomplicated . PMHX: [] Unilateral primary osteoarthritis, left knee (Acute) DEPO MEDROL 09/10/24 Hyperplastic colon polyp (Acute) Diverticula of colon (Acute) Screening for malignant neoplasm of colon performed (Acute) Left acoustic neuroma (Acute) Dizziness (Acute) Asymmetrical sensorineural hearing loss (Acute) Left knee DJD (Acute) Asthma (Chronic) Anemia (Chronic) Medical History Primary osteoarthritis of first carpometacarpal joint Kidney stones Joint pain Osteoarthritis AC (acromioclavicular) arthritis Decreased hearing of left ear History of asthma History of kidney stones Surgical History History of colonoscopy (~01/2023) History of total right knee replacement (03/30/22) History of total left hip arthroplasty (02/17/22) History of appendectomy History of tonsillectomy Social History/Home Situation: patient resides in a single-family home with with 4 steps to enter with bilateral rails. Patient independent ambulation without device, drives, and full-time employment. Patient independent with ADLs shopping and management. Patient reports she has been attending outpatient PT for vestibular rehab 1 time per week. At [facility]. Equipment Owned/DME: [facility] Subjective: Patient reports cramping in left calf and would like to stand up as quickly as she can to relieve it. 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 Patient reports having the walker provides her less symptoms of vertigo. Objective: [] General Observation: Female semireclined on stretcher with Cryo/Cuff to left knee Mental Status: Alert and oriented x 4, cooperative, able to follow instructions, agreeable to participate in assessment Pain: 4/10 left knee ROM: [] Right Upper Extremity: WNL Left Upper Extremity: WNL Right Lower Extremity: WNL Left Lower Extremity: hip WNL, active knee 0-80* ankle DF -5* Strength: [] Right Upper Extremity: 5/5 Left Upper Extremity: 5/5 Right Lower Extremity: 5/5 Left Lower Extremity: Hip flexion: 3- /5; hip abduction: 2+ /5; hip extension: 3- /5; knee extension: 3/5; knee flexion: 2+ /5 ankle DF: 3 /5 ; ankle PF: 3+/5, Fair Quad set, (+) lag with fatigue on SLR in shortened range Sensation: intact Bed Mobility/Transfers: [] Supine to sit independent Sit to stand supervision Stand to sit supervision Bed to chair Supervision Gait:amb with FWW supervision 100 feet x 2 step to pattern , reduced knee flexion left during swing phase, Stairs: 3 4 steps? and 2 6 steps with rails SBA with continuous cues for sequencing step to pattern Balance: [] Static Sitting: Normal Dynamic Sitting: Good Static Standing:Good with BUE support Dynamic Standing: Fair with 1 UE support Special Tests: [] Mobility Limitations Standardized Measure [] [facility] AM-PAC 6 clicks Basic Mobility Inpatient Short Form: [] Raw Score: 23 CMS Score: 11.20% Informed Consent/Education: Patient instructed in purpose of PT consult. Packet containing TKA exercise protocol has been given to patient. Education and training on initial set of 3 reps of exercises that can be done at home have been completed with patient. Assessment: Patient is a 59 yo female who presents with clinical signs and symptoms consistent with current/admitting diagnoses that have resulted to mobility limitations, gait instability, generalized weakness, and impairment of motor control as demonstrated by the following impairment level findings: 1. Decreased strength to left knee major muscle groups 2. Impaired standing balance 3. Limitation of joint range of motion in left knee 4. Pain left knee 5. impaired functional activity tolerance Impairments are contributing to the following functional limitations: 1. Inability to safely ambulate without assistive device 2. Increase completion time for mobility ADL performance 3. Increased fall risk 4. Difficulty performing stairs without assistance Patient is assessed as a moderate complexity based on the following: History: 59-year-old female with impairment level findings, functional limitations, and past medical history as indicated above Examination: Demonstrable impairment in strength, balance, and mobility level with underlying impairments and functional limitations as documented above Presentation:evolving/stable Decision Making: moderate Goals: N/A. PT evaluation and 1-2 treatment sessions only for functional mobility training using recommended AD and for HEP instruction. Plan of Care/Treatment Plan: N/A. PT evaluation and 1-2 treatment session only for functional mobility training using recommended AD and for HEP instruction. DISCHARGE RECOMMENDATIONS:Home with HEP and outpatient PT as scheduled TREATMENT CODE/TIME: 40380/ [id number] Thank you for the opportunity to participate in the care of this patient. Araceli Alves,PT [facility]
--- NOTE | 2024-12-25 14:39 | W.ANESPOSTOP ---
Postoperative Evaluation Date, Time and Location Date Performed: 12/25/24 Time Performed: 13:30 Patient Location: Day Surgery Unit Vital Signs Most Recent Imported Vital Signs: Most Recent Vital Signs Temp Pulse Resp BP Pulse Ox 36.5 C 74 16 164/95 H 94 12/25/24 11:46 12/25/24 11:46 12/25/24 11:46 12/25/24 11:46 12/25/24 11:46 Pain Score Most Recent Pain Score: Most Recent Pain Score Pain Level 4 12/25/24 11:46 Assessment Mental Status: Awake (Alert & Oriented to Patient Baseline) Airway and Respiratory Function: Patent airway with normal (patient baseline) respiratory exam Cardiovascular Function: Hemodynamically Stable Hydration Status: Adequately Hydrated Nausea & Vomiting: No Nausea or Vomiting Pain: Pain is tolerable per patient Peripheral Nerve Block: Regional nerve block not resolved at time of post operative discharge
== END 2024-12-25 13:18 | disposition home or self-care (01) ==
PROVIDERS: PCP Nurse Practitioner Family; Visit Provider Student in an Organized Health Care Education/Training Program
PROC: (CPT 27447; principal; 2024-12-25 09:30)
DX: M17.12 Unilateral primary osteoarthritis, left knee (principal); M21.061 Valgus deformity, not elsewhere classified, right knee; G89.18 Other acute postprocedural pain
CPT/HCPCS: 27447; 20985; 64447; 97162; C1776; J0166; J0665; J0666; J0690; J1100; J2003; J2250; J2371; J2401; J2405; J2704

== ENCOUNTER 2025-01-07 11:57 | Outpatient (CLI) | payer OTHER, SELFPAY ==
--- NOTE | 2025-01-07 11:00 | DI.RAD_ITS ---
Exam(s) XR KNEE LT 1V XR STANDING ALIGNMENT EXAM: XR STANDING ALIGNMENT and XR knee LT 1 V CLINICAL HISTORY: 1ST POST OP S/P L TKA. TECHNIQUE: 2D digital imaging was performed. Five images were obtained. COMPARISON: CR XR STANDING ALIGNMENT from 08/20/2024 CR XR KNEE LT 3V AP,LAT,VIET from 08/20/2024 FINDINGS: BONES: There are stable postsurgical changes of a left total hip arthroplasty. The right hip is unremarkable. 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 Well corticated osseous density is seen at the medial aspect of the right knee joint space which appears chronic. Since the prior examination, the patient has undergone a left total knee arthroplasty. The orthopedic hardware appears in good position. There are no suspicious lucencies around the orthopedic hardware to suggest loosening. The ankles are well maintained.There is no significant leg length discrepancy. SOFT TISSUE: Normal. IMPRESSION: Interval placement of a left total knee arthroplasty. The orthopedic hardware appears in good position. DATA REPOSITORY: RADIATION DOSE DELIVERED:
== END 2025-01-07 11:58 | disposition home or self-care (01) ==
LOC: DIORS 11:57
PROVIDERS: PCP Nurse Practitioner Family; Visit Provider Student in an Organized Health Care Education/Training Program
DX: Z96.652 Presence of left artificial knee joint (principal)
CPT/HCPCS: 73560; 77073